=== PATIENT | female | born 1965 | race Caucasian/White ===

== ENCOUNTER 2020-01-08 11:43 | Outpatient (REF) | payer OTHER, SELFPAY | END 2020-01-08 11:44 | disposition home or self-care (01) | LOC: HO.XRAY 11:43 | PROVIDERS: PCP Internal Medicine; Visit Provider Internal Medicine | DX: Z13.89 Encounter for screening for other disorder (principal) ==

== ENCOUNTER 2021-02-07 09:53 | Outpatient (REF) | payer OTHER, SELFPAY ==
--- NOTE | ~2021-02-07 | XR_ITS ---
EXAMINATION: XR CHEST 2 VIEWS CLINICAL INFORMATION: Shortness of breath. COMPARISON: Chest radiographs dated 01/05/2017. TECHNIQUE: Frontal and lateral views of the chest were obtained. FINDINGS: The heart, great vessels, pulmonary vasculature and mediastinum are normal. The lungs show no focal infiltrate, effusion or pneumothorax. There is stable mild elevation of the right hemidiaphragm. There is no acute osseous abnormality. There are right upper quadrant surgical clips. XR/XR chest 2V IMPRESSION: No active cardiopulmonary disease.
[2021-02-07 11:36] LABS: MANUAL DIFF FLAG NO
[2021-02-07 11:42] LABS: Basophils Percent Auto 0.5 % (0-2); Eosinophils Absolute Auto 0.1 X10*3/uL (0.0-0.4); Eosinophils Percent Auto 2.6 % (0-4); Hematocrit 40.5 % (37.0-47.0); Hemoglobin 13.2 g/dl (12.0-16.0); Imm Gran Abs Auto 0.01 X10*3/uL (0.00-0.03); Imm Gran Pct Auto 0.3 % (0.0-0.4); Lymphocytes Absolute Auto 1.3 X10*3/uL (1.2-4.9); Lymphocytes Percent Auto 33.9 % (20-40); Mean Corpuscular HGB Conc 32.6 g/dl (31.0-35.0); Mean Corpuscular Hemoglobin 31.4 pg (27.0-33.0); Mean Corpuscular Volume 96.2 fL (80.0-98.0); Mean Platelet Volume 8.9 fL (9.4-12.3); Monocytes Absolute Auto 0.3 X10*3/uL (0.1-1.2); Neutrophils Absolute Auto 2.1 x10*3/uL (2.0-8.3); Neutrophils Percent Auto 54.7 % (45-73); Platelet Count 183 X10*3/uL (160-400); Red Blood Count 4.21 X10*6/uL (4.20-5.50); Red Cell Distribution Width 11.9 % (11.0-16.0); White Blood Count 3.9 X10*3/uL (4.8-10.8)
[2021-02-07 12:09] LABS: Alanine Aminotransferase 17 U/L (0-31); Albumin Level 4.1 g/dL (3.5-5.0); Alkaline Phosphatase 81 U/L (39-117); Anion Gap 11 (12-20); Aspartate Amino Transferase 19 U/L (5-31); Bilirubin Total 0.5 mg/dL (0.0-1.0); Blood Urea Nitrogen 15 mg/dL (9-16); Calcium 9.2 mg/dL (8.4-10.2); Carbon Dioxide 28 mmol/L (22-29); Chloride 105 mmol/L (96-108); Cholesterol 196 mg/dL; Estimated Glomerular Filt Rate > 60; Glucose Random 102 mg/dL (60-115); HDL Cholesterol 43 mg/dL; LDL Cholesterol Calculated 122 mg/dl; Sodium 140 mmol/L (135-145); Total Protein 6.7 g/dL (6.5-8.0); Triglycerides 155 mg/dL
[2021-02-07 12:24] LABS: Free T4 (Free Thyroxine) 0.97 ng/dL (0.71-1.85); Thyroid Stimulating Hormone 1.07 uIU/mL (0.32-4.0); Vitamin D 25-OH Total 24.9 ng/mL (>30)
[2021-02-07 12:31] LABS: Erythrocyte Sedimentation Rate 7 MM/HR (0-20)
[2021-02-07 12:46] LABS: Folate 18.4 ng/mL (> or = 4.0); Vitamin B12 594 pg/mL (200-900)
== END 2021-02-07 09:54 | disposition home or self-care (01) ==
LOC: HO.HMGCX 09:53
PROVIDERS: PCP Internal Medicine; Visit Provider Internal Medicine
DX: R06.02 Shortness of breath (principal); E78.00 Pure hypercholesterolemia, unspecified
CPT/HCPCS: 36415; 71046; 80053; 80061; 82306; 82607; 82746; 84439; 84443; 85025; 85652

== ENCOUNTER 2022-01-23 09:15 | Outpatient (REF) | payer OTHER, SELFPAY ==
[2022-01-23 09:25] LABS: MANUAL DIFF FLAG NO
[2022-01-23 09:50] LABS: Basophils Percent Auto 0.2 % (0-2); Eosinophils Absolute Auto 0.1 X10*3/uL (0.0-0.4); Eosinophils Percent Auto 2.1 % (0-4); Hematocrit 41.4 % (37.0-47.0); Hemoglobin 13.5 g/dl (12.0-16.0); Imm Gran Abs Auto 0.01 X10*3/uL (0.00-0.03); Imm Gran Pct Auto 0.2 % (0.0-0.4); Lymphocytes Absolute Auto 1.5 X10*3/uL (1.2-4.9); Lymphocytes Percent Auto 30.6 % (20-40); Mean Corpuscular HGB Conc 32.6 g/dl (31.0-35.0); Mean Corpuscular Hemoglobin 31.2 pg (27.0-33.0); Mean Corpuscular Volume 95.6 fL (80.0-98.0); Mean Platelet Volume 8.9 fL (9.4-12.3); Monocytes Absolute Auto 0.4 X10*3/uL (0.1-1.2); Monocytes Percent Auto 7.7 % (2-11); Neutrophils Absolute Auto 2.9 x10*3/uL (2.0-8.3); Neutrophils Percent Auto 59.2 % (45-73); Platelet Count 190 X10*3/uL (160-400); Red Blood Count 4.33 X10*6/uL (4.20-5.50); Red Cell Distribution Width 11.7 % (11.0-16.0); White Blood Count 4.8 X10*3/uL (4.8-10.8)
[2022-01-23 10:18] LABS: Estimated Average Glucose 117 mg/dL; Hemoglobin A1c % 5.7 %
[2022-01-23 10:34] LABS: Erythrocyte Sedimentation Rate 9 MM/HR (0-20)
[2022-01-23 10:45] LABS: Alanine Aminotransferase 16 U/L (0-31); Albumin Level 4.3 g/dL (3.5-5.0); Alkaline Phosphatase 85 U/L (39-117); Anion Gap 16 (12-20); Aspartate Amino Transferase 20 U/L (5-31); Bilirubin Total 0.3 mg/dL (0.0-1.0); Blood Urea Nitrogen 16 mg/dL (9-16); C Reactive Protein 0.39 mg/dL (< or = 0.50); Calcium 9.2 mg/dL (8.4-10.2); Carbon Dioxide 26 mmol/L (22-29); Chloride 106 mmol/L (96-108); Cholesterol 220 mg/dL; Estimated Glomerular Filt Rate > 60; Glucose Random 102 mg/dL (60-115); HDL Cholesterol 49 mg/dL; LDL Cholesterol Calculated 145 mg/dl; Potassium 4.5 mmol/L (3.3-5.1); Sodium 143 mmol/L (135-145); Triglycerides 132 mg/dL
[2022-01-23 10:59] LABS: Appearance Urine Clear; Color Urine Yellow; Glucose Urine UA Negative (Negative); Leukocyte Esterase Urine Trace (Negative); Nitrite Urine Negative (Negative); PH 5.5 (5.0-9.0); UMIC TRIGGER UA YES; Urine Blood Negative (Negative); Urine Ketones Negative (Negative); Urine Protein Negative (Neg-Trace)
[2022-01-23 11:02] LABS: Bacteria Urine None Seen (None Seen); Hyaline Casts Urine 0-2 /LPF (0-2); Squamous Epithelial Cell Urine 0-2 /HPF (0-2)
[2022-01-23 11:07] LABS: Free T4 (Free Thyroxine) 1.13 ng/dL (0.71-1.85); Thyroid Stimulating Hormone 0.98 uIU/mL (0.32-4.0)
[2022-01-23 11:55] LABS: Vitamin D 25-OH Total 35.4 ng/mL (>30)
[2022-01-23 12:30] LABS: Folate 13.6 ng/mL (> or = 4.0)
[2022-01-23 12:31] LABS: Vitamin B12 617 pg/mL (200-900)
== END 2022-01-23 09:16 | disposition home or self-care (01) ==
LOC: HO.LAB 09:15
PROVIDERS: PCP Internal Medicine; Visit Provider Internal Medicine
DX: R73.02 Impaired glucose tolerance (oral) (principal); K21.9 Gastro-esophageal reflux disease without esophagitis; E78.00 Pure hypercholesterolemia, unspecified; M17.9 Osteoarthritis of knee, unspecified
CPT/HCPCS: 36415; 80053; 80061; 81001; 82306; 82607; 82746; 83036; 84439; 84443; 85025; 85652; 86140

== ENCOUNTER 2022-02-15 15:54 | Outpatient (REF) | payer OTHER, SELFPAY | END 2022-02-15 15:55 | disposition home or self-care (01) | LOC: HO.RESP 15:54 | PROVIDERS: PCP Internal Medicine; Visit Provider Internal Medicine | DX: Z13.89 Encounter for screening for other disorder (principal) ==

== ENCOUNTER 2022-04-29 08:54 | Outpatient (REF) | payer OTHER, SELFPAY ==
--- NOTE | ~2022-04-29 | XR_ITS ---
EXAMINATION: XR CHEST CLINICAL INFORMATION: Impaired glucose tolerance COMPARISON: Previous chest x-ray most recent February 2021 TECHNIQUE: 2 views of the chest were obtained. FINDINGS: No significant abnormality is noted involving the heart, lungs, mediastinum, bony thorax or soft tissues. XR/XR chest 2V IMPRESSION: Unremarkable examination.
== END 2022-04-29 08:55 | disposition home or self-care (01) ==
LOC: HO.XRAY 08:54
PROVIDERS: PCP Internal Medicine; Visit Provider Internal Medicine
DX: R13.10 Dysphagia, unspecified (principal); R73.02 Impaired glucose tolerance (oral)
CPT/HCPCS: 71046

== ENCOUNTER 2023-11-15 16:15 | Outpatient (AMB) | payer OTHER, SELFPAY ==
[2023-11-15 16:19] VITALS: BP 116/72; PULSE 77; O2SAT 98; BMI 26.8
--- NOTE | 2023-11-15 16:19 | MHC.PC.OV ---
Vital Signs 11/15/23 16:19 Height 5 ft 4 in Weight 156 lb BMI 26.8 BP 116/72 Blood Pressure Location Lt brachial Position Sitting Pulse 77 Pulse Source Pulse Oximeter Pulse Oximetry (%) 98 Oxygen Delivery Method Room Air Intake Visit Reasons: annual pe Construction Site Crossing Guard Required: No Allergies acetaminophen [From Midrin] Allergy (Mild, Verified 11/15/23 16:20) unknown dichloralphenazone [From Midrin] Allergy (Mild, Verified 11/15/23 16:20) unknown isometheptene [From Midrin] Allergy (Mild, Verified 11/15/23 16:20) unknown ceftriaxone [From Rocephin] Allergy (Unknown, Verified 11/15/23 16:20) Unknown ciprofloxacin [Cipro] Allergy (Unknown, Verified 11/15/23 16:20) Unknown metronidazole [Flagyl] Allergy (Unknown, Verified 11/15/23 16:20) Unknown Sulfa (Sulfonamide Antibiotics) Allergy (Unknown, Verified 11/15/23 16:20) Unknown timolol Allergy (Intermediate, Uncoded 11/15/23 16:58) vision changes Medication List - Last Reconciled 11/15/23 by Alan Bedolla MD azelastine 2 sprays intranasal BID dicyclomine 10 mg PO TID fluticasone propionate 50 mcg/actuation 1 spray intranasal DAILY lactobacillus combination no.8 (Adult Probiotic) 3,000 mmu cells PO DAILY methylcellulose (laxative) (Fiber Laxative (methylcellulose)) 500 mg PO DAILY multivitamin 1 tab PO DAILY nabumetone 500 mg PO BID pantoprazole 40 mg PO DAILY Tobacco use date assessed: 11/15/23 Dental Screening Dental Screen Date: 11/15/23 Did you have a dental visit in the last 12 months?: Yes Did you have a dental problem in the last 6 months where you did not have access to dental care?: No Was dental information given to patient?: Patient has dentist HPI annual pe HPI Details 58-year-old female with GERD impaired glucose tolerance coming in for physical exam last seen in 2021. Mammogram is due colonoscopy is up-to-date patient [facility] patient does have cervical disc degeneration having injections from [facility] pain management. Osteoarthritis shoulder pain having had injections done tendonitis having injections done also. Patient had bilateral thumb pain. Workup advised. Patient also has seen ENT had a CT scan of the sinuses in 2020 showing clear sinuses and nasal passageway. Does have nasal septal deviation to the right. Received note also from Gastroenterology having had colonoscopy having diverticulosis with 2 tubular adenomas advised 7 year recall this was done in May 04 2022. 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 Surgical History (Updated 11/15/23 @ 17:01 by Alan Bedolla MD) H/O pelvic surgery History of endometrial ablation H/O bilateral breast reduction surgery History of cholecystectomy History of tubal ligation Family History (Updated 01/08/21 @ 16:50 by Alan Bedolla MD) Father Basal cell carcinoma COPD (chronic obstructive pulmonary disease) Mother Dementia Paternal Grandmother Stroke Social History (Updated 12/04/20 @ 17:08 by Elsa Alegria MD) Housing: House Alcohol intake: never Patient Tobacco Use Status: Never used Tobacco e-Cigarette/Vaping Use: Never Used Second Hand Smoke Exposure: No service: No Current occupational status: employed Current occupational exposures/hazards: No Cognitive needs: No Hearing needs: No Vision needs: Yes Questionnaire PHQ-9 Over the last 2 weeks, how often have you been bothered by any of the following problems? 1. Little interest or pleasure in doing things: not at all 2. Feeling down, depressed, or hopeless: several days 3. Trouble falling or staying asleep, or sleeping too much: several days 4. Feeling tired or having little energy: several days 5. Poor appetite or overeating: not at all 6. Feeling bad about yourself - or that you are a failure or have let yourself or your family down: not at all 7. Trouble concentrating on things, such as reading the newspaper or watching television: several days 8. Moving or speaking so slowly that other people could have noticed. Or the opposite - being so fidgety or restless that you have been moving around a lot more than usual: not at all 9. Thoughts that you would be better off or of hurting yourself in some way: not at all Total score: 4 Depression Screening Interpretation: Negative Depression Screening Done: Yes 01727 - PHQ-9 Billing: Yes Source: Developed by Drs. Esteban Rivers, Ellen Valenzuela, Duncan Porras and colleagues, with an educational chela from [employer] Thrive Questionnaire Date Thrive assessed: 11/15/23 I am a: Patient What is your living situation today?: I have a steady place to live Within the past 12 months, did the food you bought not last and you didn't have the money to get more?: Never true Within the past 12 months, did you worry whether your food would run out before you got money to buy more?: Never true Do you have trouble paying for medicines?: No Do you have trouble getting transportation to medical appointments?: No Do you have trouble paying your heating and electricity bill?: No Do you have trouble taking care of your child, family member or friend?: No Do you have trouble with day-to-day activities such as bathing, preparing meals, shopping, managing finances, etc.?: No Are you currently unemployed and looking for a job?: No Are you interested in more education?: No Please select the resources that you would like help with: None Currently or been in a relationship where the following occur: No concerns reported THRIVE Score: 0 AUDIT C Alcohol Use Questionnaire (AUDIT-C) 1. How often do you have a drink containing alcohol?: Never 2. How many drinks containing alcohol do you have on a typical day when you are drinking?: 1 or 2 3. How often do you have six or more drinks on one occasion?: Never Total Score: 0 TAWANNA-7 AMB Questionnaire TAWANNA-7 Date TAWANNA - 7 assessed: 11/15/23 Feeling nervous, anxious, or on edge: 0 = Not at all Not being able to stop or control worryin = More than half the days Worrying too much about different things: 1 = Several days Trouble relaxin = Several days Being so restless that it is hard to sit still: 1 = Several days Becoming easily annoyed or irritable: 0 = Not at all Feeling afraid as if something awful might happen: 0 = Not at all Total TAWANNA-7 score (0-4 normal; 5-9 mild; 10-14 moderate; 15-21 severe): 5 Source: Developed by Drs. Esteban Rivers, Ellen Valenzuela, Duncan Porras and colleagues, with an educational chela from [employer] Review of Systems Const Denies poor appetite and Denies weakness Eyes Denies no additional complaints ENT Reports Normal hearing present, Denies dizziness, Denies nasal congestion, Denies tinnitus and Denies sore throat Card Denies chest pain, Denies syncope, Denies rapid heart rate and Denies dyspnea Resp Denies cough and Denies dyspnea GI Denies change in stool character, Reports constipation, Denies diarrhea, Denies nausea and Denies vomiting Denies urinary frequency, Denies difficulty voiding and Denies dysuria Neuro Reports Normal hearing present, Denies confusion, Denies dizziness, Denies syncope and Denies weakness Psych Denies confusion Physical exam (Primary Care) Vital Signs: Last Vital Signs Pulse 77 11/15/23 16:19 BP 116/72 11/15/23 16:19 Pulse Ox 98 11/15/23 16:19 Oxygen Delivery Method Room Air 11/15/23 16:19 BMI result Body Mass Index 26.8 Tobacco/Smoking Status: Tobacco use Status Tobacco use date assessed 11/15/23 11/15/23 16:28 Patient Tobacco Use Status Never used Tobacco 11/15/23 16:28 e-Cigarette/Vaping Use Never Used 11/15/23 16:28 PHQ-9: PHQ-9 Score PHQ-9: Total score 4 11/15/23 16:28 Depression Screening Interpretation: Negative Thrive Assessment: Date of Thrive Assessment Date Thrive assessed 11/15/23 11/15/23 16:28 Currently or been in a relationship where the following occur: No concerns reported Const General: alert and awake; No confusion Orientation/consciousness: No confusion HENMT Head: Yes normocephalic Ears: external ears normal and TM's normal bilaterally Face and sinus: Yes normal facial exam Mouth: moist mucous membranes Throat: Yes tonsils normal Eyes Conjunctivae: conjunctivae normal Pupils: Equal, round and reactive pupils present and Pupil accommodation reflex normal Direct Ophthalmoscopy: normal light reflex Neck Neck: No lymphadenopathy Thyroid: Thyroid normal Chest Chest palpation & inspection: normal inspection of the chest Resp Effort & Inspection: normal respiratory effort and no audible wheezes Auscultation: clear to auscultation bilaterally, no crackles, no wheezes and lung sounds not diminished Cardio Rate: regular rate Rhythm: regular rhythm Peripheral pulses: radial pulses present and dorsalis pedis present GI Palpation (GI): no masses Auscultation: normal bowel sounds and normoactive bowel sounds Rectal Exam - Female: deferred Skin General skin exam: no rashes or lesions noted Rashes: no rashes Neuro General: deep tendon reflexes 2+ bilaterally and No confusion Cranial nerves: Yes Equal, round and reactive pupils present, Yes Midline tongue present, Yes Normal hearing present and Yes Ability to bilaterally elevate shoulders present Cognition (Neuro): normal cognition Gait exam (Neuro): Normal gait present Motor exam (neuro): 5/5 motor strength present throughout Deep tendon reflexes (DTR's): Right brachioradialis reflex intensity grade: 2+, Left brachioradialis reflex intensity grade: 2+, Right patellar reflex intensity grade: 2+ and Left patellar reflex intensity grade: 2+ Extrem General: No edema Assessment and Plan Assessment & Plan (1) Annual physical exam: Code(s): Z00.00 - Encounter for general adult medical examination without abnormal findings Plan: Patient is advised to eat healthy, keep well hydrated, keep active and have adequate sleep. (2) GERD (gastroesophageal reflux disease): Code(s): K21.9 - Gastro-esophageal reflux disease without esophagitis Qualifiers: Esophagitis presence: without esophagitis Qualified Code(s): K21.9 - Gastro-esophageal reflux disease without esophagitis Plan: Avoid the foods that causes that usually spicy foods, tomato products, juices, coffee, soda and foods that your sensitive to. After eating do not lie down, allow 3-4 hours before in lie down. And keep the head of bed above 30 degrees to avoid the acid from going up. (3) Impaired glucose tolerance: Code(s): R73.02 - Impaired glucose tolerance (oral) Plan: Decrease the amount of carbohydrate intake, pasta, bread, rice and potatoes are all sugar and that is aside from all the sweet stuff, remember that fruits are good but they are Sweet also. (4) Knee osteoarthritis: Code(s): M17.9 - Osteoarthritis of knee, unspecified Plan: Presently on nabumetone take with food all the time. (5) Situational depression: Code(s): F43.21 - Adjustment disorder with depressed mood Plan: decline med. will be seeing counselling Orders: Orders Comprehensive Met. Panel Today R73.02 - Impaired glucose tolerance (oral) Complete Blood Count Auto Diff Today R73.02 - Impaired glucose tolerance (oral) Thyroid Stimulating Hormone Today R73.02 - Impaired glucose tolerance (oral) Vitamin D 25-OH Total Today R73.02 - Impaired glucose tolerance (oral) Free T4 (Free Thyroxine) Today R73.02 - Impaired glucose tolerance (oral) Hemoglobin A1c Today R73.02 - Impaired glucose tolerance (oral) Lipid Panel Today E78.00 - Pure hypercholesterolemia, unspecified, R73.02 - Impaired glucose tolerance (oral) Vitamin B12 and Folate Today R73.02 - Impaired glucose tolerance (oral) Medications: New pantoprazole Dr. Juarez 40 mg PO BID R73.02 - Impaired glucose tolerance (oral) Coding Level of Care Code Est Pt Prev Care 40-64y(02787) Diagnoses Annual physical exam Z00.00 Gastroesophageal reflux disease without esophagitis K21.9 Esophagitis presence: without esophagitis Impaired glucose tolerance R73.02 Knee osteoarthritis M17.9 Situational depression F43.21
== END 2023-11-15 17:18 | disposition home or self-care (01) ==
PROVIDERS: PCP Internal Medicine; Visit Provider Internal Medicine
DX: Z00.00 Encounter for general adult medical examination without abnormal findings (principal); K21.9 Gastro-esophageal reflux disease without esophagitis; R73.02 Impaired glucose tolerance (oral); M17.9 Osteoarthritis of knee, unspecified; F43.21 Adjustment disorder with depressed mood
CPT/HCPCS: 99396

== ENCOUNTER 2024-04-11 08:12 | Outpatient (REF) | payer OTHER, SELFPAY ==
--- OUTSIDE RECORDS SUMMARY | 2024-04-11 08:15 | XMS_ITS | Clinical Summary ---
Author Organization [facility] Address [address] [place] [address] Care Team Providers Care Range Aid Name Role Phone Unavailable Primary Care Provider Unavailabl e Medications Medication Sig Dispensed Refills Start Date End Date Status dicyclomine (BENTYL) 10 mg capsuleIndications:I rritable bowel syndrome (IBS) TAKE 1 CAPSULE BY MOUTH THREE TIMES A DAY NEEDED 90 capsule 2 02/13/2024 Active Social History Tobacco Use Types Packs/Day Years Used Date Smoking Tobacco: Never Assessed Sex and Gender Information Value Date Recorded Sex Assigned at Not on file Gender Identity Not on file Sexual Orientation Not on file Plan of Treatment Health Maintenance Due Date Last Done Comments Breast Cancer Screening 1965 DTaP,Tdap,and Td Vaccines (1 - Tdap) 1984 Hepatitis B Vaccines (1 of 3 - 19+ 3-dose series) 1984 Cervical Cancer Screening: P ap Smear 1986 Zoster Vaccines (1 of 2) 09/02/2015 Colorectal Cancer Screening: Colonoscopy 09/27/2023 Depression Screening 09/27/2023 HIV Screening 09/27/2023 Hepatitis C Screening 09/27/2023 Social Influencers of Health Screening 09/27/2023 COVID-19 Vaccine ( - 2023-2 5 season) 2023 Influenza Vaccine (#1) 2023 HIB Vaccines Aged Out No longer eligi ble based on patient's age to complete this topic HPV Vaccines Aged Out No longer eligi ble based on patient's age to complete this topic Hepatitis A Vaccines Aged Out No long er eligible based on patient's age to complete this topic IPV Vaccines Aged Out No longer eligi ble based on patient's age to complete this topic MMR Vaccines Aged Out No longer eligi ble based on patient's age to complete this topic Meningococcal ACWY Vaccine Aged Out N o longer eligible based on patient's age to complete this topic Pneumococcal Vaccine: Pediat rics (0 to 5 Years) and At-Risk Patients (6 to 64 Years) Aged Out No longer eligible b ased on patient's age to complete this topic RSV Immunization Patients Un alycia 20 months Aged Out No longer eligible b ased on patient's age to complete this topic Varicella Vaccines Aged Out No longer eligible based on patient's age to complete this topic
--- OUTSIDE RECORDS SUMMARY | 2024-04-11 08:15 | XMS_ITS | Clinical Summary ---
Author Organization [facility] Address [address] [place] [address] Care Team Providers Care Graphic Designer Name Role Phone Pcp, No Primary Care Provider [phone] Social History Tobacco Use Types Packs/Day Years Used Date Smoking Tobacco: Never Assessed Comments Unknown Sex and Gender Information Value Date Recorded Sex Assigned at Not on file Legal Sex Female 1:18 PM EDT Gender Identity Not on file Sexual Orientation Not on file Last Filed Vital Signs Vital Sign Reading Time Taken Comments Blood Pressure - - Pulse 66 11/13/2020 3:00 PM EDT Temperature 36.3 ??C (97.4 ??F) 11/13/2020 3:00 PM ED T Respiratory Rate - - Oxygen Saturation 97% 11/13/2020 3:00 PM EDT Inhaled Oxygen Concentration - - Weight - - Height - - Body Mass Index - - Plan of Treatment Health Maintenance Due Date Last Done Comments Colorectal Cancer: COLONOSCO PY Screening every 10 yrs (or Modifier) 1965 Depression: Screening Annual ly using PHQ-2/9 in Adults 18 yrs or above (or HM Modifier)([facility]) 09/02/1983 Hepatitis C Virus Infection in Adolescents and Adults: Screening (or Modifier) ([facility]) 09/02/[address] [facility] Screening Reminder: Paulina enriquez for all adults ([facility]) 09/02/1983 Tobacco Smoking Cessation: i n Adults excluding Women: Behavioral and Pharmacotherapy Interventions ([facility]) 09/02/1983 DTaP/Tdap/Td Vaccines ([facility]) (1 - Tdap) 1984 Cervical Cancer Screenin 1-65 yrs of age (or Modifier) 1986 Cervical Cancer Screening: P ap every 3 yrs pts age 21-65 1986 Cervical Cancer: Pap Screeni ng with Modifier timing ([facility]) 1986 Cervical Cancer: hrHPV alone or with cotesting Pap for Pts 30-65yrs screening every 5yrs ([facility]) 1986 Colorectal Cancer Screening 45 -75 Yrs (or HM Modifier) 2010 Colorectal Cancer: FLEXIBLE SIGMOIDOSCOPY Screening every 5 yrs 2010 Colorectal Cancer: Fecal Immunochemical Test (FIT) Annually [facility] 2010 Colorectal Cancer: High-sens itivity gFOBT Screening Annually [facility] 2010 Colorectal Cancer: Stool Col oguard Screening every 3 yrs 2010 Colorectal Cancer:CT Colonog tiffanie Screening every 5 yrs 2010 Lipid Screening: Every 5 yrs for Women aged 45+ (or HM Modifier) ([facility]) 09/02/2011 Breast Cancer: Screening Paulina ually age 50-74 yrs (or HM Modifier)([facility]) 09/02/2015 Zoster/Shingles Vaccine Seri es Screening: Adults aged 18+ yrs (or HM Modifiers)([facility]) (1 of 2) 09/02/2015 Flu Vaccination: Yearly for ages 18mos through 64 years (or Modifier)([facility]) 10/06/2023 COVID-19 Vaccine Screening: Initial Series and Booster Status ([facility]) (2023- season) 2023 Pneumococcal Vaccination Scr eening: Pts 0-19 & 19-64 yrs of age ([facility]) Aged Out No longer eligible based on patient's age to complete this topic Medical Devices Not on file Insurance [facility] Care Teams Graphic Designer Relationship Specialty Start Date End Date Pcp, Jasmyn PCP - General Family Medicine 05/28/20
[2024-04-11 09:51] LABS: MANUAL DIFF FLAG NO
[2024-04-11 10:00] LABS: Basophils Percent Auto 0.4 % (0-2); Eosinophils Absolute Auto 0.1 X10*3/uL (0.0-0.4); Eosinophils Percent Auto 2.1 % (0-4); Hemoglobin 13.7 g/dl (12.0-16.0); Imm Gran Abs Auto 0.01 X10*3/uL (0.00-0.03); Imm Gran Pct Auto 0.2 % (0.0-0.4); Lymphocytes Absolute Auto 1.6 X10*3/uL (1.2-4.9); Lymphocytes Percent Auto 32.6 % (20-40); Mean Corpuscular HGB Conc 33.4 g/dl (31.0-35.0); Mean Corpuscular Hemoglobin 31.9 pg (27.0-33.0); Mean Corpuscular Volume 95.6 fL (80.0-98.0); Mean Platelet Volume 8.6 fL (9.4-12.3); Monocytes Absolute Auto 0.4 X10*3/uL (0.1-1.2); Monocytes Percent Auto 9.1 % (2-11); Neutrophils Absolute Auto 2.7 x10*3/uL (2.0-8.3); Neutrophils Percent Auto 55.6 % (45-73); Platelet Count 186 X10*3/uL (160-400); Red Blood Count 4.29 X10*6/uL (4.20-5.50); Red Cell Distribution Width 12.3 % (11.0-16.0); White Blood Count 4.8 X10*3/uL (4.8-10.8)
[2024-04-11 10:18] LABS: Estimated Average Glucose 123 mg/dL; Hemoglobin A1C 145.4023 umol/L; Hemoglobin A1c % 5.9 % (<6.0); Total Hemoglobin (HGBA1C) 3579.4677 umol/L
[2024-04-11 10:27] LABS: Alanine Aminotransferase 28 U/L (0-31); Albumin Level 4.4 g/dL (3.5-5.0); Alkaline Phosphatase 77 U/L (39-117); Anion Gap 11 (12-20); Aspartate Amino Transferase 27 U/L (5-31); Bilirubin Total 0.3 mg/dL (0.0-1.0); Blood Urea Nitrogen 13 mg/dL (9-16); Carbon Dioxide 28 mmol/L (22-29); Chloride 107 mmol/L (96-108); Cholesterol 191 mg/dL (<200); Estimated Glomerular Filt Rate > 60; Glucose Random 106 mg/dL (60-115); HDL Cholesterol 48 mg/dL (>40); LDL Cholesterol Calculated 112 mg/dL (<100); Sodium 142 mmol/L (135-145); Total Protein 7.7 g/dL (6.5-8.0); Triglycerides 159 mg/dL (<150)
[2024-04-11 10:45] LABS: Free T4 (Free Thyroxine) 1.09 ng/dL (0.71-1.85); Thyroid Stimulating Hormone 1.64 uIU/mL (0.32-4.0); Vitamin D 25-OH Total 42.1 ng/mL (>30)
[2024-04-11 10:46] LABS: Folate 14.3 ng/mL (> or = 4.0); Vitamin B12 612 pg/mL (200-900)
== END 2024-04-11 08:13 | disposition home or self-care (01) ==
LOC: HO.HMGCLDS 08:12
PROVIDERS: PCP Internal Medicine; Visit Provider Internal Medicine
DX: R73.02 Impaired glucose tolerance (oral) (principal); E78.00 Pure hypercholesterolemia, unspecified
CPT/HCPCS: 36415; 80053; 80061; 82306; 82607; 82746; 83036; 84439; 84443; 85025

== ENCOUNTER 2024-04-18 13:11 | Outpatient (AMB) | payer OTHER, SELFPAY ==
[2024-04-18 13:31] VITALS: BP 118/68; PULSE 71; O2SAT 92; BMI 27.8
--- NOTE | 2024-04-18 13:31 | MHC.PC.OV ---
Vital Signs 04/18/24 13:31 Height 5 ft 4 in Weight 162 lb BMI 27.8 BP 118/68 Blood Pressure Location Lt brachial Position Sitting Pulse 71 Pulse Source Pulse Oximeter Pulse Oximetry (%) 92 Oxygen Delivery Method Room Air Intake Visit Reasons: FU Allergies acetaminophen [From Midrin] Allergy (Mild, Verified 04/18/24 13:31) unknown dichloralphenazone [From Midrin] Allergy (Mild, Verified 04/18/24 13:31) unknown isometheptene [From Midrin] Allergy (Mild, Verified 04/18/24 13:31) unknown ceftriaxone [From Rocephin] Allergy (Unknown, Verified 04/18/24 13:31) Unknown ciprofloxacin [Cipro] Allergy (Unknown, Verified 04/18/24 13:31) Unknown metronidazole [Flagyl] Allergy (Unknown, Verified 04/18/24 13:31) Unknown Sulfa (Sulfonamide Antibiotics) Allergy (Unknown, Verified 04/18/24 13:31) Unknown timolol Allergy (Intermediate, Uncoded 04/18/24 13:31) vision changes Tobacco use date assessed: 04/18/24 Dental Screening Dental Screen Date: 04/18/24 Did you have a dental visit in the last 12 months?: Yes Did you have a dental problem in the last 6 months where you did not have access to dental care?: No Was dental information given to patient?: Patient has dentist HPI FU HPI Details - The patient is a 58-year-old female presenting for a follow-up appointment regarding her multiple chronic conditions and recent diagnostic results. She has a known history of Von Willebrand Disease, Irritable Bowel Syndrome (IBS), and Gastroesophageal Reflux Disease (GERD). Previously, she reported that her osteoarthritis affects primarily her hands, and she experiences cervical and lumbar disc degeneration. Her pain management regimen includes diclofenac. Her laboratory results, conducted in March and April 2022, revealed normal liver and kidney function, a normal blood count, and normal platelet levels. However, her blood glucose levels were mildly elevated with a Hemoglobin A1c of 5.9, indicating an increase from a previous reading of 5.7. Her lipid profile showed triglycerides slightly elevated at 159 mg/dL, and LDL cholesterol at 112 mg/dL. Upon the last review with rheumatology, testing for autoimmune markers, including Sj?gren's syndrome and other related conditions, was negative, leaving arthritis as the primary concern. There is no evidence of anemia or other significant blood disorders. The patient denies any significant symptoms apart from the mild elevation in glucose levels, potentially linked to dietary habits, which she is encouraged to monitor closely. Had a very long discussion with the patient regarding her depression and anxiety patient lost son and is taking care of her mother with dementia and grand children. Has been relating her situation causing her anxiety and depression. [facility] Medical History (Updated 04/18/24 @ 14:08 by Alan Bedolla MD) Closed arm fracture Chronic sinusitis Fecal incontinence Impaired glucose tolerance GERD (gastroesophageal reflux disease) Open-angle glaucoma Right wrist fracture Right carpal tunnel syndrome Diverticulitis Osteoarthritis Glaucoma Irritable bowel syndrome Impaired ability of von Willebrand factor (vWF) to agglutinate platelets Surgical History (Updated 11/15/23 @ 17:01 by Alan Bedolla MD) H/O pelvic surgery History of endometrial ablation H/O bilateral breast reduction surgery History of cholecystectomy History of tubal ligation Family History (Updated 01/08/21 @ 16:50 by Alan Bedolla MD) Father Basal cell carcinoma COPD (chronic obstructive pulmonary disease) Mother Dementia Paternal Grandmother Stroke Social History (Updated 12/04/20 @ 17:08 by Elsa Alegria MD) Housing: House Alcohol intake: never Patient Tobacco Use Status: Never used Tobacco Tobacco use type: Cigarette e-Cigarette/Vaping Use: Never Used Second Hand Smoke Exposure: No service: No Current occupational status: employed Current occupational exposures/hazards: No Cognitive needs: No Hearing needs: No Vision needs: Yes Questionnaire Thrive Questionnaire Date Thrive assessed: 04/18/24 AUDIT C Alcohol Use Questionnaire (AUDIT-C) 1. How often do you have a drink containing alcohol?: Never 2. How many drinks containing alcohol do you have on a typical day when you are drinking?: 1 or 2 3. How often do you have six or more drinks on one occasion?: Never Total Score: 0 TAWANNA-7 AMB Questionnaire TAWANNA-7 Date TAWANNA - 7 assessed: 04/18/24 Feeling nervous, anxious, or on edge: 0 = Not at all Not being able to stop or control worryin = More than half the days Worrying too much about different things: 1 = Several days Trouble relaxin = Several days Being so restless that it is hard to sit still: 1 = Several days Becoming easily annoyed or irritable: 0 = Not at all Feeling afraid as if something awful might happen: 0 = Not at all Total TAWANNA-7 score (0-4 normal; 5-9 mild; 10-14 moderate; 15-21 severe): 5 Source: Developed by Drs. Esteban Rivers, Ellen Valenzuela, Duncan Porras and colleagues, with an educational chela from [employer]. Physical exam (Primary Care) Vital Signs: Last Vital Signs Pulse 71 04/18/24 13:31 BP 118/68 04/18/24 13:31 Pulse Ox 92 04/18/24 13:31 Oxygen Delivery Method Room Air 04/18/24 13:31 BMI result Body Mass Index 27.8 Tobacco/Smoking Status: Tobacco use Status Tobacco use date assessed 04/18/24 04/18/24 13:33 Patient Tobacco Use Status Never used Tobacco 04/18/24 13:33 Tobacco use type Cigarette 04/18/24 13:33 e-Cigarette/Vaping Use Never Used 04/18/24 13:33 Thrive Assessment: Date of Thrive Assessment Date Thrive assessed 04/18/24 04/18/24 13:33 Const General: alert; No acute distress Eyes Conjunctivae: conjunctivae normal Resp Auscultation: clear to auscultation bilaterally Cardio Rate: regular rate Rhythm: regular rhythm GI Inspection: Yes normal to inspection Extrem General: Yes normal to inspection and No edema Coding Level of Care Code Est Pt Level 4 (35926) Diagnoses Overweight (BMI 25.0-29.9) E66.3 Impaired glucose tolerance R73.02 Gastroesophageal reflux disease without esophagitis K21.9 Esophagitis presence: without esophagitis Irritable bowel syndrome K58.9 Situational depression F43.21 Generalized anxiety disorder F41.1 Assessment & Plan Assessment & Plan (1) Overweight (BMI 25.0-29.9): Code(s): E66.3 - Overweight Category: Medical Plan: Diet and exercise (2) Impaired glucose tolerance: Code(s): R73.02 - Impaired glucose tolerance (oral) Category: Medical Plan: Decrease the amount of carbohydrate intake, pasta, bread, rice and potatoes are all sugar and that is aside from all the sweet stuff, remember that fruits are good but they are Sweet also. (3) GERD (gastroesophageal reflux disease): Code(s): K21.9 - Gastro-esophageal reflux disease without esophagitis Category: Medical Qualifiers: Esophagitis presence: without esophagitis Qualified Code(s): K21.9 - Gastro-esophageal reflux disease without esophagitis Plan: Avoid the foods that causes that usually spicy foods, tomato products, juices, coffee, soda and foods that your sensitive to. After eating do not lie down, allow 3-4 hours before in lie down. And keep the head of bed above 30 degrees to avoid the acid from going up. (4) Irritable bowel syndrome: Code(s): K58.9 - Irritable bowel syndrome, unspecified Category: Medical Plan: Stable with dicyclomine as needed (5) Situational depression: Code(s): F43.21 - Adjustment disorder with depressed mood Category: Medical Plan: Referral to Psychiatry done and started on trazodone to help with sleep (6) Generalized anxiety disorder: Code(s): F41.1 - Generalized anxiety disorder Category: Medical Plan: Referral to Psychiatry done Plan - Continue management and monitoring of Osteoarthritis and Degenerative Disc Disease with prescribed diclofenac for pain relief. Monitor for any side effects. - Maintain current management strategies for Von Willebrand Disease with the consideration of medication side effects. - Manage Gastroesophageal Reflux Disease with the suggested dietary changes and medication if needed. - Mild hyperglycemia: Advise dietary modifications to control blood sugar levels. Emphasize reducing intake of carbohydrates such as pasta, bread, rice, cereals, and sweets. - Monitor Hyperlipidemia: Encourage lipid-lowering dietary changes. Continue monitoring lipid levels. - Regular follow-up with rheumatology to manage arthritis. - Recommend continuous monitoring of vitamin , vitamin D, folic acid, and thyroid function to ensure they remain within normal limits. Orders: Orders XR sinus min 3V Today J32.9 - Chronic sinusitis, unspecified Referrals Psychiatry Outpatient Consultation Service F41.1 - Generalized anxiety disorder, F43.21 - Adjustment disorder with depressed mood Medications: New vit [id number] 352 300 mcg-45 mg- 10 mcg-5 mg (Alive Immune Elderberry) 1 tab PO .QD 30 tabs 0RF trazodone 50 mg PO BEDTIME PRN 30 tabs 0RF sleep G47.00 - Insomnia, unspecified Discontinued doxycycline hyclate Discontinued Reason: Doctor's Order 100 mg PO BID 14 caps 0RF
--- OUTSIDE RECORDS SUMMARY | 2024-04-18 14:32 | XMS_ITS | Clinical Summary ---
Author Organization [facility] lin Address [address] [place] [address] Care Team Providers Care Home Office Representative Name Role Phone Pcp, No Primary Care Provider [phone] Social History Tobacco Use Types Packs/Day Years [...] Adults 18 yrs or above (or HM Modifier)([facility]) 09/02/1983 Hepatitis C Virus Infection in Adolescents and Adults: Screening (or Modifier) ([facility]) 09/02/1983 SDOH Screening Reminder: Paulina leslielly for all adults ([facility]) 09/02/1983 Tobacco Smoking Cessation: i n Adults excluding Women: Behavioral and Pharmacotherapy Interventions ([facility]) 09/02/1983 DTaP/Tdap/Td Vaccines ([facility]) (1 - Tdap) 1984 Cervical Cancer Screenin 1-65 yrs of age (or Modifier) 1986 Cervical Cancer Screening: P ap every 3 yrs pts age 21-65 1986 Cervical Cancer: Pap Screeni ng with Modifier timing ([facility]) 1986 Cervical Cancer: hrHPV alone or with cotesting Pap for Pts 30-65yrs screening every 5yrs ([facility]) 1986 Colorectal Cancer Screening 45 -75 Yrs (or HM Modifier) 2010 Colorectal Cancer: FLEXIBLE SIGMOIDOSCOPY Screening every 5 yrs 2010 Colorectal Cancer: Fecal Immunochemical Test (FIT) Annually [facility] 2010 Colorectal Cancer: High-sens itivity gFOBT Screening Annually [facility] 2010 Colorectal Cancer: Stool Col oguard Screening every 3 yrs 2010 Colorectal Cancer:CT Colonog tiffanie Screening every 5 yrs 2010 Lipid Screening: Every 5 yrs for Women aged 45+ (or HM Modifier) ([facility]) 09/02/2011 Breast Cancer: Screening Paulina ually age 50-74 yrs (or HM Modifier)([facility]) 09/02/2015 Zoster/Shingles Vaccine Seri es Screening: Adults aged 18+ yrs (or HM Modifiers)([facility]) (1 of 2) 09/02/2015 Flu Vaccination: Yearly for ages 18mos through 64 years (or Modifier)([facility]) 10/06/2023 COVID-19 Vaccine Screening: Initial Series and Booster Status ([facility]) (2023- season) 2023 Pneumococcal Vaccination Scr eening: Pts 0-19 & 19-64 yrs of age ([facility]) Aged Out No longer eligible based on patient's age to complete this topic Medical Devices Not on file Insurance [facility] Care Teams Home Office Representative Relationship Specialty Start Date End Date Pcp, No PCP - General Family Medicine 05/28/20
--- OUTSIDE RECORDS SUMMARY | 2024-04-18 14:33 | XMS_ITS | Data Portability ---
Author Organization [facility] Pain Managem ent, PAIN OFFICE Address [address] [facility] [address] [place] [address] Care Team Providers Care Product Technology Scientist Name Role Phone JON BALTAZAR Primary Care Provider [phone] Assessment Encounter Date Assessment Date Assessment LastModified by Organization Details LastModified Time 05/13/2011 05/13/2011 45 year old woman with? ? ?neck pain radiating into the right? ? ?upper extremity. On exam ,she has pain on flexion and tenderness in right paracervical and trapezius muscles. MRI? ? ?cervical spine shows mild spondylosis? ? ?. EMG shows minimal right C6-7 radiculopathy. Trial of? ? ?cervical epidural steroid injections under fluroscopic guidance was recommended. The risks and benefits of the procedure? ? ? were discussed in detail. She wishes to proceed. An appointment has been booked for the same. She needs a bung driver on the day of the procedure. She was given a script for Valium preprocedure. [email or web address] Not available 05/17/2011 11:38:17 05/24/2011 05/24/2011 Alyssa Espino is a 45 year old woman with neck pain radiating into right upper extremity. She is here for a trial of cervical epidural steroid injection under fluroscopic guidance.The risks and benefits of the procedure were discussed in detail. She wishes to proceed today. [email or web address] Not available 05/26/2011 09:03:07 12/22/2016 12/22/2016 Alyssa Espino is a 51 year old woman with neck pain radiating into the right upper extremity. On exam ,she has pain on flexion and tenderness in right paracervical and trapezius muscles. MRI cervical spine shows mild spondylosis . EMG shows minimal right C6-7 radiculopathy. Trial of cervical epidural steroid injections under fluoroscopic guidance was recommended. The risks and benefits of the procedure were discussed in detail. She wishes to proceed. An appointment has been booked for the same. She needs a bung driver on the day of the procedure. She was given a prescription for ativan to be taken pre procedure. MEDICAL CERTIFICATION SPECIALIST online was checked. She was advised not to drive after taking ativan. [email or web address] Not available 12/29/2016 14:13:34 Plan of Treatment Reminders Order Date Submit Date Provider Last Modified By Organization Details Last Modified Time Details Appointments None recorded . Lab None recorded . Referral None recorded . Procedures None recorded . Surgeries None recorded . Imaging None recorded . Medication Orders Valium 5 mg tablet 012 05/17/19 12 MARIANNE Not available 3 04:58:37 Patient TargetsNo targets recorded. Patient Instructions Encounter Date Encounter Id Patient Instructions Last Modified By Organization Details Last Modified Time 05/13/2011 [id number] She was advised against bed rest lasting longer than four days and to continue activities as tolerated. [email or web address] Not available 05/17/2011 11:38:17 05/24/2011 [id number] She was advised against bed rest lasting longer than four days and to continue activities as tolerated. [email or web address] Not available 05/26/2011 09:03:07 Reason for Referral None Reported. Results Created Date Observation Date Name Description Value Unit Range Abnormal Flag Note LastModifiedBy Organization Detail LastModifiedTime 05/13/19 12 04/14/2011 gunner ghosh/robert duff tic resul t No observ ation record ed. [facility] [address] [place] [address], [address], 09/29/2012 04:58:35 Result Notes None recorded. 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 Procedures Surgical History Date Name Laterality Status Provider Name and Address Organization Details Recorded Time 05/24/19 12 Cervical Epidural Steroid injection under fluroscopic guidance completed Dennis Cobian MD [address] [facility] , [address], [place], [address], [place] - [facility] 05/26/2011 09:03:07 Cholecystectomy completed Dennis Cobian MD [address] [facility] , [address], [place], [address], [place] [facility] 12/22/2016 15:15:00 Breast Surgery completed Dennis [facility] [address] [facility] [address], [place], [address], [place] [facility] 12/22/2016 15:15:25 Tubal Ligation completed Nan Lilly [place] - [facility] 05/13/2011 14:28:46 Other completed Nan Lilly [place] - [facility] 05/13/2011 14:28:46 Imaging Results Imaging Date Name Status LastModified by Organiz ation Details LastModified Time 04/14/2011 imaging/diag nostic result completed [facility] [address] [place] [address], [address], 09/29/2012 04:58:35 Procedure Notes None recorded. Medical Equipment None Reported. Allergies Allergen ID Allergen Name Allergen Category Reaction Reaction Severity Criticality Documentation Date Start Date Code Code System Note Provider Name and Address Organization Details Recorded Time 77343 Cipro medicatio n anaphylax is Not available Not available 12/22/2016 3 RxNorm Dennis zimmerman MD [address] , [address], [place], [address], [place] [facility] 7 15:10:45 24352 Flagyl medicatio n anaphylax is Not available Not available 12/22/2016 6 RxNorm Dennis zimmerman MD [address] [facility] , [address], [facility] [place], [address], [place] - [facility] 7 15:11:01 1801 Rocephin medicatio n anaphylax is Not available Not available 05/13/2011 9449 RxNorm Nan Lillywilder brennan, [place] - [facility] 2 14:26:18 1802 Substance with sulfonami de structure and antibacte rial mechanism of action (substanc e) medicatio n Not available Not available Not available 05/13/2011 88050 8003 SNOMED GI upset Nansixto brennan, [place] - [facility] 2 14:26:18 1803 Midrin medicatio n anaphylax is Not available Not available 05/13/2011 90364 RxNorm Nansixto brennan, [place] - [facility] 2 14:26:18 Medications Name Sig Start Date Stop Date Status Note LastModified by Organization Details LastModified Time prednisone tab 5mg active Not Available Not Available Not Available tramadol hcl tab 50mg 12/22 completed Not Available Not Available Not Available nabumetone tab 750mg 12/22 completed Not Available Not Available Not Available tizanidine tab 4mg 12/22 completed Not Available Not Available Not Available cyclobenza pr tab 5mg 12/22 completed Not Available Not Available Not Available diazepam tab 5mg active Not Available Not Available Not Available fluconazol e 150 mg tablet 12/22 completed Not Available Not Available Not Available ondansetro n HCl 4 mg tablet 12/22 completed Not Available Not Available Not Available prednisone 20 mg tablet 12/22 completed Not Available Not Available Not Available prednisone 5 mg tablet 12/22 completed Not Available Not Available Not Available metronidaz ole 500 mg tablet 12/22 completed Not Available Not Available Not Available ciprofloxa ashley 500 mg tablet 12/22 completed Not Available Not Available Not Available peg-electr olyte solution 420 gram oral solution 12/22 completed Not Available Not Available Not Available Valium 5 mg tablet one tablet to be taken one hour prior to the procedur e and one tablet the night before the procedur e. 2011 active Not Available Not Available Not Avai lable clotrimazo le-betamet hasone 1 %-0.05 % topical cream 12/22 completed Not Available Not Available Not Available omeprazole 20 mg capsule,de layed release active Not Available Not Available Not Available dicyclomin e 10 mg capsule TAKE ONE CAPSULE BY MOUTH 3 TIMES A DAY NEEDED active Not Available Not Available No t Available amoxicilli n 875 mg-potassi um clavulanat e 125 mg tablet 12/22 completed Not Available Not Available Not Available nabumetone 500 mg tablet active Not Available Not Available Not Available oxycodone 5 mg tablet 12/22 completed Not Available Not Available Not Available loratadine daily active as needed Not Available Not Available Not Available Vitals Date Recorded Body height Body weight Body mass index (BMI) Heart rate Oxygen saturation Oxygen saturation in Arterial blood by Pulse oximetry Systolic blood pressure Diastolic blood pressure Provider Name and Address Organization Details Last Updated DateTime 2 160.02 cm 01845.8 555 g 26.6 kg/m2 94 /min 99 % 99 % 127 mm[Hg] 85 mm[Hg] Nan Lilly [place] - [facility] 2 14:25:11 Date Recorded Heart rate Oxygen saturation Oxygen saturation in Arterial blood by Pulse oximetry Systolic blood pressure Diastolic blood pressure Provider Name and Address Organization Details Last Updated DateTime 2 96 /min 98 % 98 % 147 mm[Hg] 97 mm[Hg] Nan Lilly [place] - [facility] 2 15:00:11 Date Recorded Heart rate Oxygen saturation Oxygen saturation in Arterial blood by Pulse oximetry Body height Body mass index (BMI) Body weight Systolic blood pressure Diastolic blood pressure Provider Name and Address Organization Details Last Updated DateTime 7 84 /min 98 % 98 % 160.02 cm 30.3 kg/m2 31041.3 g 130 mm[Hg] 79 mm[Hg] Dennis zimmerman MD [address] [place] [address] , [address], [facility] [place], [address], [place] - [facility] 7 15:08:35 Social History Question Answer Notes LastModified by Organizat ion Details LastModified Time Tobacco Smoking Status Never Smoker Not Available [employer] 12/21/2019 03:16:10 What Is Your Level Of Alcohol Consumption? None [id number] Information not available 12/21/2019 Are You Currently Employed? Yes [employer] [id number] Information not available 12/21/2019 Which Illicit Or Recreational Drugs Have You Used? 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 With Others [employer] [email or web address] Information not available 05/13/2011 Marital Status [email or web address] Informatio n not available 05/13/2011 What Was The Date Of Your Most Recent Tobacco Screening? 12/22/2016 [id number] Information not available 12/21/2019 Sex: Unknown Functional Status None recorded. Mental Status None recorded. Family History Relationship Description Onset Age of this Age Resolved Age Notes LastModified by Organization Details LastModified Time Mother Rheumatoid arthritis [id number] Not available 11/26/2012 03:02:00 Medical History Condition Response Arthritis Y Irritable Bowel Syndrome Y Gynecological HistoryNo gynecological history recorded. Obstetrics History GPAL:G 0 P 0 0 0 0 Past Encounters Encounter ID Performer Location Encounter Start Date Encounter Closed Date Diagnosis/Indication Diagnosis SNOMED-CT Code Diagnosis ICD10 Code Diagnosis Note [id number] [address] [place] [address] 05/13/2011 13:51:32 05/13/2011 15:31:18 [id number] [address] [facility] [place] [address] 05/24/2011 14:30:20 05/26/2011 09:04:16 [id number] Dennis Cobian MD PAIN OFFICE [address] [facility] [place] [address] 12/22/2016 14:58:52 12/29/2016 14:22:58 Cervical radiculopathy 73257836 M54.12 Degenerati on of cervical intervertebral disc 53137359 M50.30 Health Concerns Section Related Observation LastModified by Organization Detai ls LastModified Time None Recorded Concern Status LastModified by Organization Details LastModified Time None Recorded Advance Directives Directive None Recorded Payers Encounter Date Sequence Insurance Name Policy Number Policy Alves Covered Member ID Alves Member ID Guarantor Name 05/13/2011 1 [facility] [id number] Alyssa Espino [id number] Alyssa Espino 05/24/2011 1 [facility] [id number] Alyssa Espino [id number] Alyssa Espino 12/22/2016 1 [facility] [id number] Alyssa Espino [id number] Alyssa [place] Notes Date Note Type Note Provider Name and Address Organization Details Recorded Time 05/24/2011 text/html She is here for a trial of cervical epidural steroid injection under fluroscopic guidance. She has taken valium. Dennis Cobian MD [address] , [address], [place], [address], [employer] [facility] 05/26/2011 10:22:34 12/22/2016 text/html She is here for a follow up. She is complaining of neck pain radiating into right upper extremity. She had a cervical epidural steroid injection under fluoroscopic guidance on 05/24/2011 and states she had good pain benefit for a number of years . She had return of pain six months ago and is becoming progressively greater. She spends a lot of time typing on her computer. 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 She has no history of bladder or bowel incontinence. Dennis Cobian MD [address] , [address], [place], [address], [employer] [facility] 01/04/2017 12:16:53 OBGyn Episode No OBEpisode recorded.
--- OUTSIDE RECORDS SUMMARY | 2024-04-18 14:33 | XMS_ITS | Data Portability ---
Author Organization [place] [facility], Allergy Address [address] [place] [address] Assessment Encounter Date Assessment Date Assessment LastModified by Organization Details LastModified Time 10/26/2023 10/26/2023 58 year old female presents for follow up of her environmental allergies. She has done well with regimen of Flonase, Astelin and Zyrtec daily. She is not currently interested in more invasive procedures such as SCIT or SLIT. Azelastine prescribed today. She does have some buccal bite line changes. Hopefully this will improve with her new mouthguard. With respect to the thickening on the left side of tongue I have asked that she upload a copy of the pathology report from her dentist to our portal. This may represent oral lichen planus. I have advised her to avoid sodium brandon sulfate containing toothpastes and avoid alcohol containing mouthwash. She will follow up in one year. Seen with Dr Butler who took hx, examined patient and helped formulate plan david Not available 10/26/2023 12:10:44 Plan of Treatment Reminders Order Date Submit Date Provider Last Modified By Organization Details Last Modified Time Details Appointments None recorded. Lab None recorded. Referral None recorded. Procedures None recorded. Surgeries None recorded. Imaging None recorded. Medication Orders azelastine 205.5 mcg (0.15 %) nasal spray 2023 024 [email or web address] [id number], [address] [place], [address], 11:44:52 Patient TargetsNo targets recorded. Patient InstructionsNo instructions recorded. Reason for Referral None Reported. Results Created Date Observation Date Name Description Value Unit Range Abnormal Flag Note LastModifiedBy Organization Detail LastModifiedTime 10/26/1912/05/2020 imagi ng/di agnos tic resul t No observ ation record ed. [email or web address] Not Available 00:18:12 10/26/19 24 12/24/2020 imagi ng/di agnos tic resul t No observ ation record ed. [email or web address] Not Available 00:18:31 Result Notes None recorded. Problems Name Problem SNOMED Code Status Onset Date Resolution Date Notes Provider Name and Address Organization Details Recorded Time Chronic pansinusi tis 55087161 Active 2020 Chronic pansinusit is; Note: Date Diagnosed: 12/05/2020 10:16 AM (J32.4) Not Available [facility] 4 02:39:11 Dysphonia 06217949 Active 2021 Hoarseness ; Note: Date Diagnosed: 09/22/2021 4:47 PM (R49.0) Not Available [facility] 4 02:39:17 Nasal congestio n 28943298 Active 2021 Nasal congestion ; Note: Date Diagnosed: 11/16/2021 4:45 PM (R09.81) Not Available [facility] 4 02:39:13 Gastroeso phageal reflux disease without esophagit is 580656683 Active 2021 Gastro-eso phageal reflux disease without esophagiti s; Note: Date Diagnosed: 09/23/2021 9:50 AM (K21.9) Not Available [facility] 4 02:39:02 Allergic rhinitis caused by pollen 51524986 Active 2020 Allergic rhinitis due to pollen; Note: Date Diagnosed: 12/05/2020 10:16 AM (J30.1) Not Available [facility] 4 02:39:16 Posterior rhinorrhe a 86628343 Active 2021 Postnasal drip; Note: Date Diagnosed: 09/23/2021 9:50 AM (R09.82) Not Available [facility] 4 02:39:06 Oral lichen planus 451900272 Active 2023 FEDERICA CARDENAS PA-C [address] [facility], [place], [address] , [facility] 4 11:35:23 Lichen planus 8734830 Active 2023 FEDERICA CARDENAS PA-C [address] [facility] [address], [place], [address] , [facility] 4 11:45:10 Problem Notes None recorded. Procedures Surgical History None recorded. Imaging Results Imaging Date Name Status LastModified by Organiz ation Details LastModified Time 12/05/2020 imaging/diag nostic result completed Information not available 10/26/2023 00:18:12 12/24/2020 imaging/diag nostic result completed Information not available 10/26/2023 00:18:31 Procedure Notes None recorded. Medical Equipment None Reported. Allergies Allergen ID Allergen Name Allergen Category Reaction Reaction Severity Criticality Documentation Date Start Date Code Code System Note Provider Name and Address Organization Details Recorded Time 78732 Rocephin medicatio n other Not available Not available 07/19/2023 9449 RxNorm React ion: other react ion, Unkno wn; Not Available [facility] 4 00:56:14 16634 Midrin medicatio n other Not available Not available 07/19/2023 88816 RxNorm React ion: other react ion, Unkno wn; Not Available [facility] 4 00:56:16 23316 Flagyl medicatio n other Not available Not available 07/19/2023 6 RxNorm React ion: other react ion, Unkno wn; Not Available [facility] 4 00:56:19 56033 Cipro medicatio n other Not available Not available 07/19/202325234 3 RxNorm React ion: other react ion, Unkno wn; Not Available [facility] 4 00:56:21 Medications Name Sig Start Date Stop Date Status Note LastModified by Organization Details LastModified Time Prescript ion - Prior Authoriza tion Request active Script Copy/Amee or Auth^Scr ipt Copy/Amee or Auth_ Not Available Not Available Not Available Claritin 10 mg tablet 2020 active Medicati on ID: [id number] B rand Name: Claritin Send Method: E-Prescr ibed Sub s Allowed: subs OK Medic ationGen ericName : Claritin Not Available Not Available Not Available pantopraz ole 40 mg tablet,de layed release TAKE 1 TABLET BY MOUTH EVERY DAY active Not Available Not Available No t Available omeprazol e 20 mg capsule,d elayed release 2020 active Medicati on ID: [id number] B rand Name: omeprazo le Send Method: E-Prescr ibed Sub s Allowed: subs OK Speci al Instruct ion: TAKE ONE CAPSULE BY MOUTH TWICE A DAY Medi cationGe nericNam e: omeprazo le Not Available Not Available Not Available monteluka st 10 mg tablet TAKE 1 TABLET BY MOUTH AT BEDTIME active Not Available Not Available No t Available azelastin e 137 mcg (0.1 %) nasal spray Inhale 2 spray twice a day as directed 09/26 completed Medicati on ID: [id number] D uration Value: 30 Prescri bed By Name: VANE Manuel nd Name: azelasti ne Send Method: E-Prescr ibed Sub s Allowed: subs OK Speci al Instruct ion: 1 spray into each nostril BID Medi cationGe nericNam e: azelasti ne Not Available Not Available Not Available timolol maleate 0.5 % eye drops 2020 active Medicati on ID: [id number] B rand Name: timolol maleate Send Method: E-Prescr ibed Sub s Allowed: subs OK Speci al Instruct ion: INSTILL 1 DROP INTO BOTH EYES TWICE A DAY Medi cationGe nericNam e: timolol maleate Not Available Not Available Not Available dicyclomi ne 10 mg capsule TAKE 1 CAPSULE BY MOUTH THREE TIMES A DAY NEEDED active Not Available Not Available No t Available nabumeton e 500 mg tablet TAKE 1 TABLET BY MOUTH TWICE A DAY WITH FOOD active Not Available Not Available No t Available azelastin e 205.5 mcg (0.15 %) nasal spray [place] 1 spray twice a day by intranas al route for 30 days. 2023 active Not Available Not Available Not Avai lable Fiber (uday valentin) 0.4 gram capsule 2020 active Medicati on ID: [id number] B rand Name: Fiber (dipak valentin) Se nd Method: E-Prescr ibed Sub s Allowed: subs OK Medic ationGen ericName : Fiber (dipak valentin) Not Available Not Available Not Available Vitals Date Recorded Body height Body mass index (BMI) Body weight Provider Name and Address Organization Details Last Updated DateTime 10/26/2023 160.02 cm 26.6 kg/m2 13656.86 g Chiquita Canas [place] [facility] 10/26/2023 11:16:20 Social History None recorded. Functional Status None recorded. Mental Status None recorded. Family History Nothing Reported. Medical History No medical history recorded. Gynecological HistoryNo gynecological history recorded. Obstetrics History GPAL:G 0 P 0 0 0 0 Past Encounters Encounter ID Performer Location Encounter Start Date Encounter Closed Date Diagnosis/Indication Diagnosis SNOMED-CT Code Diagnosis ICD10 Code Diagnosis Note [id number] TOÑA DAVALOS MD [facility] [address] [address] 10/26/2023 11:08:27 10/26/2023 11:39:00 Posterior rhinorrhea 94335387 R09.82 Oral lichen planus 97437 9008 L43.9 Allergic rhinitis 025840 04 J30.9 Health Concerns Section Related Observation LastModified by Organization Detai ls LastModified Time None Recorded Concern Status LastModified by Organization Details LastModified Time None Recorded Advance Directives Directive None Recorded Payers Encounter Date Sequence Insurance Name Policy Number Policy Alves Covered Member ID Alves Member ID Guarantor Name 10/26/2023 1 [facility] [id number] Alyssa Espino [id number] Alyssa Espino Notes Date Note Type Note Provider Name and Address Organization Details Recorded Time 10/26/2023 text/html 58 year old femishmael godinez with history of GERD presents for re-evaluation of environmental allergies. She has not been seen in a couple of years. She has not had recent sinus infection. She feels her allergies and symptoms of congestion and postnasal drip are well controlled with azelastine nasal spray, Flonase, and Zyrtec. She stopped using Singulair three weeks ago and notices no change in her symptoms. She requests refill of azelastine. She also notes occasional burning on the left lateral tongue. She has had lesion in this area biopsied in the past by her oral surgeon. She reports that biopsy was negative for cancer. She is unsure what is causing these lesions. TOÑA BUTLER MD [address] [place] [address], [place], [address], [facility] - [facility] 10/26/2023 12:11:31 OBGyn Episode No OBEpisode recorded.
--- OUTSIDE RECORDS SUMMARY | 2024-04-18 14:33 | XMS_ITS | Clinical Summary ---
Author Organization [facility] Address [address] [place] [address] Care Team Providers Care Enterprise Systems Engineer Name Role Phone Unavailable Primary Care Provider Unavailabl e Medications dicyclomine (BENTYL) 10 mg capsuleIndicati ons:Irritable bowel syndrome (IBS) TAKE 1 CAPSULE BY MOUTH THREE TIMES A DAY NEEDED 90 capsule 2 02/13/2024 Active Social History Tobacco Use Types Packs/Day Years Used Date Smoking Tobacco: Never Assessed Comments Unknown Sex and Gender Information Value Date Recorded Sex Assigned at Not on file Legal Sex Female 10:49 AM EST Gender Identity Not on file Sexual Orientation Not on file Plan of Treatment Health Maintenance Due Date Last Done Comments Breast Cancer Screening 1965 DTaP,Tdap,and Td Vaccines (1 - Tdap) 1984 Hepatitis B Vaccines (1 of 3 - 19+ 3-dose series) 1984 Cervical Cancer Screening: P ap Smear 1986 Pneumococcal Vaccine: 50+ Ye ars (1 of 1 - PCV) 09/02/2015 Zoster Vaccines (1 of 2) 09/02/2015 Colorectal [...] patient's age to complete this topic Meningococcal B Vacine Aged Out No lo nger eligible based on patient's age to complete [...]
== END 2024-04-18 14:38 | disposition home or self-care (01) ==
PROVIDERS: PCP Internal Medicine; Visit Provider Internal Medicine
DX: E66.3 Overweight (principal); R73.02 Impaired glucose tolerance (oral); K21.9 Gastro-esophageal reflux disease without esophagitis; K58.9 Irritable bowel syndrome, unspecified; F43.21 Adjustment disorder with depressed mood; F41.1 Generalized anxiety disorder

== ENCOUNTER 2024-05-30 16:42 | Outpatient (REF) | payer OTHER, SELFPAY ==
--- NOTE | ~2024-05-30 | XR_ITS ---
EXAMINATION: XR SINUSES CLINICAL INFORMATION: R05.9 - Cough, unspecified COMPARISON: None available. TECHNIQUE: 3 views of the sinuses were obtained. FINDINGS: Paranasal sinuses are well pneumatized and aerated. No air-fluid levels. Metallic piercing on the right side of the nose. XR/XR sinus min 3V IMPRESSION: No paranasal sinus disease. Electronically signed by: Gerber Wall MD 05/31/2024 07:16 AM EDT
--- OUTSIDE RECORDS SUMMARY | 2024-05-30 19:05 | XMS_ITS | Encounter Summary ---
Author Organization [facility] Address [address] [place] [address] Care Team Providers Care Analytics Director Name Role Phone Alan Bedolla MD Primary Care Provider [phone] Encounter Details Date Type Department Care Team (Late st Contact Info) Description 04/30/2024 Telephone Gastroenterology - [address] [place] [phone] Sreedhar Juarez MD [address] [place] [address] Social History Tobacco Use Types Packs/Day Years Used Date Smoking Tobacco: Never Assessed Comments Unknown Sex and Gender Information Value Date Recorded Sex Assigned at Not on file Legal Sex Female 10:49 AM EST Gender Identity Not on file Sexual Orientation Not on file documented as of this encounter Progress Notes * Carisa Hogan MA - 05/01/2024 8:53 AM EST Lmom to let patient know to start a 24 hour clear liquid diet, start with heather tea for nausea, miralax for cramping and bloating, and to call in a few days. I also let her know that if symptoms gotworse to go to the emergency room. * Jodee Phipps - 04/30/2024 8:48 AM EST PT CALLED STATING SHE IS HAVING SOME RECTAL BLEEDING (BRIGHT RED), NAUSEA, STOMACH CRAMPS/PAIN, DECREASED APPETITE, AND SOME PREVIOUS VOMITING. I HAVE HER SCHEDULED IN THE NEXT AVAILABLE BUT PT IS WONDERING WHAT TO DO IN THE MEAN TIME? documented in this encounter Plan of Treatment Not on file documented as of this encounter Visit Diagnoses Not on filedocumented in this encounter Care Teams Analytics Director Relationship Specialty Start Date End Date Alan Bedolla MD [address] [place] [address] PCP - General Internal Medicine 04/30/24 documented as of this encounter
--- OUTSIDE RECORDS SUMMARY | 2024-05-30 19:05 | XMS_ITS | Encounter Summary ---
Author Organization [facility] Address [address] [place] [address] Care Team Providers Care Electronic Typesetting Machine Operator Name Role Phone Alan Bedolla MD Primary Care Provider [phone] Reason for Visit * Reason Comments Follow-up Encounter Details Date Type Department Care Team (Latest Contact Info) Description 05/30/2024 12:40 PM EDT Office Visit Gastroenterology - [address] [place] [phone] Jennifer Almendarez PA [address] [place] [address] Gastroesophageal reflux disease without esophagitis (Primary Dx); Rectal bleeding Social History Tobacco Use Types Packs/Day Years Used Date Smoking Tobacco: Never Assessed Comments Unknown Sex and Gender Information Value Date Recorded Sex Assigned at Not on file Legal Sex Female 10:49 AM EST Gender Identity Not on file Sexual Orientation Not on file documented as of this encounter Last Filed Vital Signs Vital Sign Reading Time Taken Comments Blood Pressure - - Pulse - - Temperature - - Respiratory Rate - - Oxygen Saturation - - Inhaled Oxygen Concentration - - Weight 73.9 kg (163 lb) 05/30/2024 12:46 PM EDT Height 160 cm (5' 3 ) 05/30/2024 12:46 PM EDT Body Mass Index 28.87 05/30/2024 12:46 PM EDT documented in this encounter Ordered Prescriptions Prescription Sig Dispense Quantity Refills Last Filled Start Date End Date pantoprazole (PROTONIX) 40 mg EC tabletIndications: Gastroesophageal reflux disease without esophagitis Take 1 tablet (40 mg total) by mouth 2 (two) times a day. Do not crush, chew, or split. 180 each 3 05/30/2024 05/30/2025 documented in this encounter Progress Notes * GISEL Dugan - 05/30/2024 12:40 PM EDTAssociated Problem(s): Gastroesophageal reflux disease without esophagitis Increase pantoprazole to 40 mg twice a day for the next 30 days N.p.o. at least 3 hours before bed Encouraged her to discuss chest burning with PCP as well to rule out cardiac etiology. Orders: pantoprazole (PROTONIX) 40 mg EC tablet; Take 1 tablet (40 mg total) by mouth 2 (two) times a day. Do not crush, chew, or split. * GISEL Dugan - 05/30/2024 12:40 PM EDT Subjective Last Colononscopy/EGD: Colon 04/2022 - tics throughout, TA x2 (7yr); Colon/EGD 06/2016 HPI: Alyssa Espino is a 58 y.o. old female who presents to the gastroenterology department today for rectal bleeding and nausea. She was experiencing loose stools and saw some bright red blood on the toilet paper. That happened over a couple of days and has not happened since. Is been over a monthsince that occurred. Her bowel movements are regular right now. She is having more issues with her reflux currently. She had reflux that kept her up all night recently. She takes pantoprazole 40 mg once a day. She took a second 1 at that time. She has been under a lot of stress recently. Her son last July and she is raising her 2 grandchildren. She had a persistent sinus infection overthe winter and was on antibiotics a couple of times. She did not feel that it was clearing up and had some shortness of breath and went to the emergency room recently. She reports an unremarkable workup at that time including an EKG. That was before the GERD symptoms however. She was placed on steroids at the emergency room and given an inhaler. She denied melena. She denied dysphagia. She is worried about immunodeficiency and is following up with her primary care to discuss that more this week. Review of Systems Constitutional: Negative. Respiratory: Negative. Cardiovascular: Negative. Gastrointestinal: Positive for anal bleeding. Reflux Loose stool Genitourinary: Negative. PROBLEM LIST: Patient Active Problem List Diagnosis Gastroesophageal reflux disease without esophagitis Irritable bowel syndrome with constipation Diverticulitis Endometriosis Arthritis Glaucoma Urinary incontinence PAST MEDICAL HISTORY: No past medical history on file. PAST SURGICAL HISTORY: Past Surgical History: Procedure Laterality Date CHOLECYSTECTOMY COLONOSCOPY 06/2022 tics throughout, TAx2 (7yr) COLONOSCOPY 06/2016 tics ESOPHAGOGASTRODUODENOSCOPY 06/2016 unremarkable TUBAL LIGATION SOCIAL HISTORY: Social History Tobacco Use Smoking status: Not on file Smokeless tobacco: Not on file Substance Use Topics Alcohol use: Not on file FAMILY HISTORY: No family history on file. ACTIVE MEDICATIONS: Current Outpatient Medications Medication Sig Dispense Refill dicyclomine (BENTYL) 10 mg capsule TAKE 1 CAPSULE BY MOUTH THREE TIMES A DAY NEEDED 90 capsule 0 pantoprazole (PROTONIX) 40 mg EC tablet Take 1 tablet (40 mg total) by mouth 1 (one) time each day. pantoprazole (PROTONIX) 40 mg EC tablet Take 1 tablet (40 mg total) by mouth 2 (two) times a day. Do not crush, chew, or split. 180 each 3 No current facility-administered medications for this visit. ALLERGIES: Allergies Allergen Reactions Ceftriaxone Anaphylaxis Fzmcnkz-Yeohkzmjz-Whqtssmxtdpn Anaphylaxis Ciprofloxacin Hives Metronidazole Hives Sulfa (Sulfonamide Antibiotics) GI intolerance Wt Readings from Last 1 Encounters: 05/30/24 1246 73.9 kg (163 lb) Physical Exam Constitutional: Appearance: Normal appearance. HENT: Head: Normocephalic. Cardiovascular: Rate and Rhythm: Normal rate and regular rhythm. Pulmonary: Effort: Pulmonary effort is normal. Breath sounds: Normal breath sounds. Abdominal: General: Bowel sounds are normal. There is no distension. Palpations: Abdomen is soft. There is no mass. Tenderness: There is no abdominal tenderness. There is no guarding or rebound. Skin: General: Skin is warm. Neurological: Mental Status: She is alert and oriented to person, place, and time. Psychiatric: Mood and Affect: Mood normal. Behavior: Behavior normal. IMPRESSION: 1. Gastroesophageal reflux disease without esophagitis 2. Rectal bleeding Assessment/Plan Assessment & Plan Gastroesophageal reflux disease without esophagitis Increase pantoprazole to 40 mg twice a day for the next 30 days N.p.o. at least 3 hours before bed Encouraged her to discuss chest burning with PCP as well to rule out cardiac etiology. Orders: pantoprazole (PROTONIX) 40 mg EC tablet; Take 1 tablet (40 mg total) by mouth 2 (two) times a day. Do not crush, chew, or split. Rectal bleeding Asymptomatic Consistent with distal etiology, likely hemorrhoids Follow up in about 2 months (around 07/30/2024). GISEL Dugan 4:28 PM EDT documented in this encounter Plan of Treatment Not on file documented as of this encounter Visit Diagnoses Diagnosis Gastroesophageal reflux disease without esophagitis- Primary Esophageal reflux Rectal bleeding Hemorrhage of rectum and anus documented in this encounter Historical Medications * This list may reflect changes made after this encounter. pantoprazole (PROTONIX) 40 mg EC tablet Take 1 tablet (40 mg total) by mouth 1 (one) time each day. added in this encounter Care Teams Electronic Typesetting Machine Operator Relationship Specialty Start Date End Date Alan Bedolla MD [address] [place] [address] PCP - General Internal Medicine 04/30/24 documented as of this encounter
--- OUTSIDE RECORDS SUMMARY | 2024-05-30 19:05 | XMS_ITS | Encounter Summary ---
Author Organization [facility] Address [address] [place] [address] Care Team Providers Care Product Engineering Manager Name Role Phone Alan Bedolla MD Primary Care Provider Encounter Details Date Type Department Care Team (Late st Contact Info) Description 05/30/2024 Telephone Gastroenterology - [address] [place] [phone] Jennifer Almendarez PA [address] [place] [address] Social History Tobacco Use Types Packs/Day Years Used Date Smoking Tobacco: Never Assessed Comments Unknown Sex and Gender Information Value Date Recorded Sex Assigned at Not on file Legal Sex Female 10:49 AM EST Gender Identity Not on file Sexual Orientation Not on file documented as of this encounter Progress Notes * Maia Jones - 05/30/2024 1:24 PM EDT Pt left without scheduling. Follow-up disposition: Follow up in about 2 months (around 07/30/2024). Check out comments: 01 pt documented in this encounter Plan of Treatment Not on file documented as of this encounter Visit Diagnoses Not on filedocumented in this encounter Care Teams Product Engineering Manager Relationship Specialty Start Date End Date Alan Bedolla MD [address] [place] [address] PCP - General Internal Medicine 04/30/24 documented as of this encounter
--- OUTSIDE RECORDS SUMMARY | 2024-05-30 19:05 | XMS_ITS | Data Portability ---
Author Organization [facility] Address [address] [facility] [address] [place] [address] Care Team Providers Care Distribution Center Associate Name Role Phone JON BALTAZAR Primary Care Provider Assessment Encounter Date Assessment Date Assessment LastModified [...] booked for the same. She needs a bobcat driver/labor on the day of the procedure. She [...] booked for the same. She needs a bobcat driver/labor on the day of the procedure. She was given a prescription for ativan to be taken pre procedure. DYNAMOMETER TESTER online was checked. She was advised not [...] By Organization Details Last Modified Time 05/13/2011 [id number] She was advised against bed rest lasting longer than four days and to continue activities as tolerated. [email or web address] Not available 05/17/2011 11:38:17 05/24/2011 [id number] She was advised against bed rest lasting longer than four days and to continue activities as tolerated. [email or web address] Not available 05/26/2011 09:03:07 Reason for Referral None Reported. Results Created Date Observation Date Name Description Value Unit Range Abnormal Flag Note LastModifiedBy Organization Detail LastModifiedTime 05/13/19 12 04/14/2011 gunner ghosh/rboert duff tic resul t No observ ation record ed. [facility] [address] [place] [address], [address], 09/29/2012 04:58:35 Result Notes None recorded. 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 Procedures Surgical History Date Name Laterality Status Provider Name and Address Organization Details Recorded Time 05/24/19 12 Cervical Epidural Steroid injection under fluroscopic guidance completed Dennis Cobian MD [address] [facility] , [address], [place], [address], [place] [facility] 05/26/2011 09:03:07 Cholecystectomy completed Dennis Cobian MD [address] [facility] , [address], [place], [address], [place] [facility] 12/22/2016 15:15:00 Breast Surgery completed Dennis Cobian [facility] [address] [facility] [address], [place], [address], [place] [facility] 12/22/2016 15:15:25 Tubal Ligation completed Nan Lilly [place] - [facility] 05/13/2011 14:28:46 Other completed Nan Lilly [place] - [facility] 05/13/2011 14:28:46 Imaging Results Imaging Date Name Status LastModified by Organiz ation Details LastModified Time 04/14/2011 imaging/diag nostic result completed [facility] [address] [place] [address], [address], 09/29/2012 04:58:35 Procedure Notes None recorded. Medical Equipment None Reported. Allergies Allergen ID Allergen Name Allergen Category Reaction Reaction Severity Criticality Documentation Date Start Date Code Code System Note Provider Name and Address Organization Details Recorded Time 70240 Cipro medicatio n anaphylax is Not available Not available 12/22/2016 3 RxNorm Dennis zimmerman MD [address] , [address], [place], [address], [place] [facility] 7 15:10:45 37079 Flagyl medicatio n anaphylax is Not available Not available 12/22/2016 6 RxNorm Dennis zimmerman MD [address] [facility] , [address], [facility] [place], [address], [place] - [facility] 7 15:11:01 1801 Rocephin medicatio n anaphylax is Not available Not available 05/13/2011 9449 RxNorm Nan Lillywilder brennan, [place] - [facility] 2 14:26:18 1802 Substance with sulfonami de structure and antibacte rial mechanism of action (substanc e) medicatio n Not available Not available Not available 05/13/2011 26970 8003 SNOMED GI upset Nansixto brennan, [place] - [facility] 2 14:26:18 1803 Midrin medicatio n anaphylax is Not available Not available 05/13/2011 40885 RxNorm Nansixto brennan, [place] - [facility] [...] Details Last Updated DateTime 2 160.02 cm 07179.8 555 g 26.6 kg/m2 94 /min 99 % 99 % 127 mm[Hg] 85 mm[Hg] Nan Lilly [place] - [facility] 2 14:25:11 Date Recorded Heart rate Oxygen saturation Oxygen saturation in Arterial blood by Pulse oximetry Systolic blood pressure Diastolic blood pressure Provider Name and Address Organization Details Last Updated DateTime 2 96 /min 98 % 98 % 147 mm[Hg] 97 mm[Hg] Nan Lilly [place] [facility] 2 15:00:11 Date Recorded Heart rate Oxygen saturation Oxygen saturation in Arterial blood by Pulse oximetry Body height Body mass index (BMI) Body weight Systolic blood pressure Diastolic blood pressure Provider Name and Address Organization Details Last Updated DateTime 7 84 /min 98 % 98 % 160.02 cm 30.3 kg/m2 48458.3 g 130 mm[Hg] 79 mm[Hg] Dennis zimmerman MD [address] [place] [address] , [address], [facility] [place], [address], [place] - [facility] 7 15:08:35 Social History Question Answer Notes LastModified by Organizat ion Details LastModified Time Tobacco Smoking Status Never Smoker Not Available [employer] 12/21/2019 03:16:10 What Is Your Level Of Alcohol Consumption? 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 With Others And 2 Sons [email or web address] Information not available 05/13/2011 Marital Status [email or web address] Informatio n not available 05/13/2011 What Was The Date Of Your Most Recent Tobacco Screening? 12/22/2016 [id number] Information not available 12/21/2019 Sex: Unknown Functional Status None recorded. Mental Status None recorded. Family History Relationship Description Onset Age of this Age Resolved Age Notes LastModified by Organization Details LastModified Time Mother Rheumatoid arthritis [id number] [id number] Not available 11/26/2012 03:02:00 Medical History Condition Response Arthritis Y Irritable Bowel Syndrome Y Gynecological HistoryNo gynecological history recorded. Obstetrics History GPAL:G 0 P 0 0 0 0 Past Encounters Encounter ID Performer Location Encounter Start Date Encounter Closed Date Diagnosis/Indication Diagnosis SNOMED-CT Code Diagnosis ICD10 Code Diagnosis Note [id number] PAIN OFFICE [address] [place] [address] 05/13/2011 13:51:32 05/13/2011 15:31:18 [id number] PAIN OFFICE [address] [facility] [place] [address] 05/24/2011 14:30:20 05/26/2011 09:04:16 [id number] Dennis Cobian MD PAIN OFFICE [address] [facility] [place] [address] 12/22/2016 14:58:52 12/29/2016 14:22:58 Cervical radiculopathy 27942693 M54.12 Degenerati on of cervical intervertebral disc 27089484 M50.30 Health Concerns Section Related Observation LastModified by Organization Detai ls LastModified Time None Recorded Concern Status LastModified by Organization Details LastModified Time None Recorded Advance Directives Directive None Recorded Payers Encounter Date Sequence Insurance Name Policy Number Policy Alves Covered Member ID Alves Member ID Guarantor Name 05/13/[address] [facility] [id number] Alyssa Espino [id number] Alyssa Tucker Coffeen 05/24/[address] [facility] [id number] Alyssa Espino [id number] Alyssa Espino 12/22/[address] [facility] [id number] Alyssa Espino [id number] Alyssa Tucker Srinivas Notes Date Note Type Note Provider Name and Address Organization Details Recorded Time 05/24/2011 text/html She is here for a trial of cervical epidural steroid injection under fluroscopic guidance. She has taken valium. Dennis Cobian MD [address] , [address], [place], [address], [employer] [facility] 05/26/2011 10:22:34 12/22/2016 text/html She [...] her computer. 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 She has no history of bladder or bowel incontinence. Dennis Cobian MD [address] , [address], [place], [address], [employer] [facility] 01/04/2017 12:16:53 OBGyn Episode No OBEpisode recorded.
--- OUTSIDE RECORDS SUMMARY | 2024-05-30 19:05 | XMS_ITS | Clinical Summary ---
Author Organization [facility] [address] [facility] Address [address] [place] [address] Phone Care Team Providers Care Safety Deposit Supervisor Name Role Phone Alan Bedolla MD Primary Care Provider [phone] Allergies Active Allergy Reactions Criticality Noted Date Comments Ceftriaxone Anaphylaxis High 05/30/2024 Ciprofloxacin Hives 05/30/2024 Rhkqkjw-Zawxhmjvs-Gpexfelxacit Anaphylaxis High 05/06 Metronidazole Hives 05/30/2024 Sulfa (Sulfonamide Antibiotics) GI intolerance 05/30/2024 Medications dicyclomine (BENTYL) 10 mg capsuleIndicati ons:Irritable bowel syndrome (IBS) TAKE 1 CAPSULE BY MOUTH THREE TIMES A DAY NEEDED 90 capsule 5 Active pantoprazole (PROTONIX) 40 mg EC tablet Take 1 tablet (40 mg total) by mouth 1 (one) time each day. Active pantoprazole (PROTONIX) 40 mg EC tabletIndicatio ns:Gastroesopha geal reflux disease without esophagitis Take 1 tablet (40 mg total) by mouth 2 (two) times a day. Do not crush, chew, or split. 180 each 3 5 026 Active dicyclomine (BENTYL) 10 mg capsuleIndicati ons:Irritable bowel syndrome (IBS) TAKE 1 CAPSULE BY MOUTH THREE TIMES A DAY NEEDED 90 capsule 2 4 025 Discontinued Active Problems Problem Noted Date Diagnosed Date Gastroesophageal reflux disease without esophagi tis 05/30/2024 Assessment & Plan (05/30/2024 4:40 PM EDT): Increase pantoprazole to 40 mg twice a day for the next 30 days N.p.o. at least 3 hours before bed Encouraged her to discuss chest burning with PCP as well to rule out cardiac etiology. Orders: pantoprazole (PROTONIX) 40 mg EC tablet; Take 1 tablet (40 mg total) by mouth 2 (two) times a day. Do not crush, chew, or split. Irritable bowel syndrome with constipation 05/30 Diverticulitis 05/30/2024 Endometriosis 05/30/2024 Arthritis 05/30/2024 Glaucoma 05/30/2024 Urinary incontinence 05/30/2024 Overview (05/30/2024): S/p sacral nerve stimulation Encounters Date Type Department Care Team Description 05/30/2024 12:40 PM EDT Office Visit Gastroenterology - [address] [phone] Jennifer Almendarez PA Gastroesophageal reflux disease without esophagitis (Primary Dx); Rectal bleeding 05/30/2024 Telephone Gastroenterology - [address] [place] [address] [phone] Jennifer Almendarez PA 04/30/2024 Telephone Gastroenterology - [address] [phone] Sreedhar Juarez MD from Last 3 Months Surgical History Surgery Date Site/Laterality Comments CHOLECYSTECTOMY TUBAL LIGATION COLONOSCOPY 06/05/2022 - 07/04/2022 tics throughout, TAx2 (7yr) COLONOSCOPY 06/05/2016 - 07/04/2016 tics ESOPHAGOGASTRODUODENOSCOPY 06/05/2016 - 07/04/2016 unremarkable Social History Tobacco Use Types Packs/Day Years Used Date Smoking Tobacco: Never Assessed Comments Unknown Sex and Gender Information Value Date Recorded Sex Assigned at Not on file Legal Sex Female 10:49 AM EST Gender Identity Not on file Sexual Orientation Not on file Obstetrics History Last Filed Vital Signs Vital Sign Reading Time Taken Comments Blood Pressure - - Pulse - - Temperature - - Respiratory Rate - - Oxygen Saturation - - Inhaled Oxygen Concentration - - Weight 73.9 kg (163 lb) 05/30/2024 12:46 PM EDT Height 160 cm (5' 3 ) 05/30/2024 12:46 PM EDT Body Mass Index 28.87 05/30/2024 12:46 PM EDT Plan of Treatment Health Maintenance Due Date Last Done Comments Breast Cancer Screening 1965 Hepatitis B Vaccines (1 of 3 - 19+ 3-dose series) 1984 Cervical Cancer Screening: Pap Smear 1986 Pneumococcal Vaccine: 50+ Years (1 of 1 - PCV) 09/02/2015 Colorectal Cancer Screening: Colonoscopy 09/27/2023 Depression Screening 09/27/2023 HIV Screening 09/27/2023 Hepatitis C Screening 09/27/2023 Social Influencers of Health Screening 09/27/2023 COVID-19 Vaccine (2023- season) 2023 01/25/2022, 01/24/2021, 04/19/2020, Additional history exists DTaP,Tdap,and Td Vaccines (3 - Td or Tdap) 12/31/2027 12/30/2017, 05/26/2009 Hepatitis A Vaccines Aged Out 05/26/2009 No long er eligible based on patient's age to complete this topic Zoster Vaccines Completed 01/27/2020, 11/24/2019 Influenza Vaccine Completed 11/01/2023, , 12/09/2021, Additional history exists HIB Vaccines Aged Out No longer eligi [...] age to complete this topic Pneumococcal Vaccine: Pediatrics (0 to 5 Years) and At-Risk Patients (6 to 64 Years) Aged Out No longer eligible based on patient's age to complete this topic RSV Immunization Patients Under 20 months Aged Out No longer eligible based on patient's age to complete this topic Varicella Vaccines Aged Out No longer eligible based on patient's age to complete this topic Insurance [facility] Care Teams Safety Deposit Supervisor Relationship Specialty Start Date End Date Alan Bedolla MD [address] [place] [address] PCP - General Internal Medicine 04/30/24
--- OUTSIDE RECORDS SUMMARY | 2024-05-30 19:05 | XMS_ITS | Data Portability ---
Author Organization [place] - [facility], Allergy Address [address] [place] [phone] Assessment Encounter Date Assessment Date Assessment LastModified [...] spray 2023 024 [email or web address] [id number], [address] [place], [address], 11:44:52 Patient TargetsNo targets recorded. Patient InstructionsNo [...] Organization Details Recorded Time Chronic pansinusi tis 77492609 Active 2020 Chronic pansinusit is; Note: Date Diagnosed: 12/05/2020 10:16 AM (J32.4) Not Available [facility] 4 02:39:11 Dysphonia 96006376 Active 2021 Hoarseness ; Note: Date Diagnosed: 09/22/2021 4:47 PM (R49.0) Not Available [facility] 4 02:39:17 Nasal congestio n 36665745 Active 2021 Nasal congestion ; Note: Date Diagnosed: 11/16/2021 4:45 PM (R09.81) Not Available [facility] 4 02:39:13 Gastroeso phageal reflux disease without esophagit is 609774508 Active 2021 Gastro-eso phageal reflux disease without esophagiti s; Note: Date Diagnosed: 09/23/2021 9:50 AM (K21.9) Not Available [facility] 4 02:39:02 Allergic rhinitis caused by pollen 98914550 Active 2020 Allergic rhinitis due to pollen; Note: Date Diagnosed: 12/05/2020 10:16 AM (J30.1) Not Available [facility] 4 02:39:16 Posterior rhinorrhe a 94853310 Active 2021 Postnasal drip; Note: Date Diagnosed: 09/23/2021 9:50 AM (R09.82) Not Available [facility] 4 02:39:06 Oral lichen planus 983331252 Active 2023 FEDERICA CARDENAS PA-C [address] [facility] [address], [place], [address] , [facility] 4 11:35:23 Lichen planus 6673968 Active 2023 FEDERICA CARDENAS PA-C [address] [facility] [address], [place], [address] , [facility] 4 11:45:10 Problem Notes None recorded. [...] Name and Address Organization Details Recorded Time 67627 Rocephin medicatio n other Not available Not available 07/19/2023 9449 RxNorm React ion: other react ion, Unkno wn; Not Available [facility] 4 00:56:14 19476 Midrin medicatio n other Not available Not available 07/19/2023 94982 RxNorm React ion: other react ion, Unkno wn; Not Available [facility] 4 00:56:16 84407 Flagyl medicatio n other Not available Not available 07/19/2023 6 RxNorm React ion: other react ion, Unkno wn; Not Available [facility] 4 00:56:19 30415 Cipro medicatio n other Not available Not available 07/19/202352568 3 RxNorm React ion: other react ion, Unkno wn; Not Available [facility] 4 00:56:21 Medications Name Sig Start Date Stop Date Status Note LastModified by Organization Details LastModified Time Prescript ion - Prior Authoriza tion Request active Script Copy/Amee or Auth^Scr ipt Copy/Amee or Auth_ Not Available Not Available Not Available Claritin 10 mg tablet 2020 active Medicati on ID: [id number] B rand Name: Claritin Send Method: E-Prescr ibed Sub s Allowed: subs OK Medic ationGen ericName : Claritin Not Available Not Available Not Available pantopraz ole 40 mg tablet,de layed release TAKE 1 TABLET BY MOUTH EVERY DAY active Not Available Not Available No t Available omeprazol e 20 mg capsule,d elayed release 2020 active Medicati on ID: [id number] B rand Name: omeprazo le Send Method: [...] as directed 09/26 completed Medicati on ID: [id number] D uration Value: 30 Prescri bed By Name: VANE Manuel nd Name: azelasti ne Send Method: E-Prescr ibed Sub s Allowed: subs OK Speci al Instruct ion: 1 spray into each nostril BID Medi cationGe nericNam e: azelasti ne Not Available Not Available Not Available timolol maleate 0.5 % eye drops 2020 active Medicati on ID: [id number] B rand Name: timolol maleate Send Method: [...] e 205.5 mcg (0.15 %) nasal spray [place] 1 spray twice a day by intranas al route for 30 days. 2023 active Not Available Not Available Not Avai lable Fiber (uday valentin) 0.4 gram capsule 2020 active Medicati on ID: [id number] B rand Name: Fiber (dipak valentin) Se nd Method: E-Prescr ibed Sub s Allowed: subs OK Medic ationGen ericName : Fiber (dipak valentin) Not Available Not Available Not Available Vitals Date Recorded Body height Body mass index (BMI) Body weight Provider Name and Address Organization Details Last Updated DateTime 10/26/2023 160.02 cm 26.6 kg/m2 45195.86 g Chiquita Canas [place] - [facility] 10/26/2023 11:16:20 Social History None recorded. Functional Status None recorded. Mental Status None recorded. Family History Nothing Reported. Medical History No medical history recorded. Gynecological HistoryNo gynecological history recorded. Obstetrics History GPAL:G 0 P 0 0 0 0 Past Encounters Encounter ID Performer Location Encounter Start Date Encounter Closed Date Diagnosis/Indication Diagnosis SNOMED-CT Code Diagnosis ICD10 Code Diagnosis Note [id number] TOÑA DAVALOS MD [facility] [address] [phone] 10/26/2023 11:08:27 10/26/2023 11:39:00 Posterior rhinorrhea 94531408 R09.82 Oral lichen planus 01677 9008 L43.9 Allergic rhinitis 642626 04 J30.9 Health Concerns Section Related Observation LastModified by Organization Detai ls LastModified Time None Recorded Concern Status LastModified by Organization Details LastModified Time None Recorded Advance Directives Directive None Recorded Payers Encounter Date Sequence Insurance Name Policy Number Policy Alves Covered Member ID Alves Member ID Guarantor Name 10/26/2023 1 [facility] [id number] Alyssa Espino [id number] Alyssa Espino Notes Date Note Type Note [...] is causing these lesions. TOÑA BUTLER MD [address] [place] [address], [place], [address], [facility] - [facility] 10/26/2023 12:11:31 OBGyn Episode No OBEpisode recorded.
== END 2024-05-30 16:43 | disposition home or self-care (01) ==
LOC: HO.XRAY 16:42
PROVIDERS: Visit Provider Internal Medicine
DX: R05.9 Cough, unspecified (principal)
CPT/HCPCS: 70220

== ENCOUNTER → 2024-05-30 16:43 | Outpatient (BNV) | payer OTHER, SELFPAY | PROVIDERS: Visit Provider Radiology Diagnostic Radiology | DX: R05.9 Cough, unspecified (principal) | CPT/HCPCS: 70220 ==

== ENCOUNTER 2024-06-01 09:54 | Outpatient (AMB) | payer OTHER, SELFPAY ==
--- NOTE | 2024-06-01 10:06 | A.OFFPC_ITS ---
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 Accompanied by: Spouse Allergies acetaminophen [From Midrin] Allergy (Mild, Verified 06/01/24 10:08) unknown dichloralphenazone [From Midrin] Allergy (Mild, Verified 06/01/24 10:08) unknown isometheptene [From Midrin] Allergy (Mild, Verified 06/01/24 10:08) unknown ceftriaxone [From Rocephin] Allergy (Unknown, Verified 06/01/24 10:08) Unknown ciprofloxacin [Cipro] Allergy (Unknown, Verified 06/01/24 10:08) Unknown metronidazole [Flagyl] Allergy (Unknown, Verified 06/01/24 10:08) Unknown Sulfa (Sulfonamide Antibiotics) Allergy (Unknown, Verified 06/01/24 10:08) Unknown timolol Allergy (Intermediate, Uncoded 06/01/24 10:08) vision changes Tobacco use date assessed: 06/01/24 Dental Screening Dental Screen Date: 04/18/24 HPI HPI Comments History of Present Illness Details 58 y/o female patient who presents to [facility] for EDF. She was admitted at [facility] on 05/18/24 for Acute Bronchitis. Chest Xray was negative for Pneumonia and SARs was negative also. She was discharged home the same day on prednisone. [facility] Medical History (Updated 06/01/24 @ 10:25 by Pati Acosta NP) Acute bronchitis Closed arm fracture Chronic sinusitis Fecal incontinence Impaired glucose tolerance GERD (gastroesophageal reflux disease) Open-angle glaucoma Right wrist fracture Right carpal tunnel syndrome Diverticulitis Osteoarthritis Glaucoma Irritable bowel syndrome Impaired ability of von Willebrand factor (vWF) to agglutinate platelets Surgical History H/O pelvic surgery History of endometrial ablation H/O bilateral breast reduction surgery History of cholecystectomy History of tubal ligation Family History Father Basal cell carcinoma COPD (chronic obstructive pulmonary disease) Mother Dementia Paternal Grandmother Stroke Social History Housing: House Alcohol intake: never Patient Tobacco Use Status: Never used Tobacco Tobacco use type: Cigarette e-Cigarette/Vaping Use: Never Used Second Hand Smoke Exposure: No service: No Current occupational status: employed Current occupational exposures/hazards: No Cognitive needs: No Hearing needs: No Vision needs: Yes Questionnaire PHQ-9 Over the last 2 weeks, how often have you been bothered by any of the following problems? 1. Little interest or pleasure in doing things: not at all 2. Feeling down, depressed, or hopeless: not at all 3. Trouble falling or staying asleep, or sleeping too much: not at all 4. Feeling tired or having little energy: not at all 5. Poor appetite or overeating: not at all 6. Feeling bad about yourself - or that you are a failure or have let yourself or your family down: not at all 7. Trouble concentrating on things, such as reading the newspaper or watching television: not at all 8. Moving or speaking so slowly that other people could have noticed. Or the opposite - being so fidgety or restless that you have been moving around a lot more than usual: not at all 9. Thoughts that you would be better off or of hurting yourself in some way: not at all Total score: 0 Depression Screening Interpretation: Negative Depression Screening Done: Yes Source: Developed by Drs. Esteban Rivers, Ellen Valenzuela, Duncan Porras and colleagues, with an educational chela from [employer]. Thrive Questionnaire Date Thrive assessed: 04/18/24 AUDIT C Alcohol Use Questionnaire (AUDIT-C) 1. How often do you have a drink containing alcohol?: Never 3. How often do you have six or more drinks on one occasion?: Never Total Score: 0 TAWANNA-7 AMB Questionnaire TAWANNA-7 Date TAWANNA - 7 assessed: 04/18/24 Source: Developed by Drs. Esteban Rivers, Ellen Valenzuela, Duncan Porras and colleagues, with an educational chela from [employer]. Physical exam (Primary Care) Vital Signs: Last Vital Signs Temp 98 F 06/01/24 10:08 Pulse 93 06/01/24 10:08 BP 122/66 06/01/24 10:08 Pulse Ox 97 06/01/24 10:08 Oxygen Delivery Method Room Air 06/01/24 10:08 BMI result Body Mass Index 28.0 Tobacco/Smoking Status: Tobacco use Status Tobacco use date assessed 06/01/24 06/01/24 10:14 Patient Tobacco Use Status Never used Tobacco 06/01/24 10:07 Tobacco use type Cigarette 06/01/24 10:07 e-Cigarette/Vaping Use Never Used 06/01/24 10:07 PHQ-9: PHQ-9 Score PHQ-9: Total score 0 06/01/24 10:07 Depression Screening Interpretation: Negative Thrive Assessment: Date of Thrive Assessment Date Thrive assessed 04/18/24 06/01/24 10:07 Const General: no acute distress Nutritional Appearance: overweight Orientation/consciousness: patient oriented x3 Resp Effort & Inspection: normal respiratory effort and able to speak in complete sentences Auscultation: clear to auscultation bilaterally, no crackles, no rales, no rhonchi and no wheezes Cardio Heart sounds: S1 normal heart sound present and S2 normal heart sound present Neuro General: patient oriented x3 Coding Level of Care Code Est Pt Level 4 (17162) Diagnoses Acute bronchitis, unspecified organism J20.9 Bronchitis organism: unspecified organism Time Spent (min) 20 Assessment & Plan Assessment & Plan (1) Acute bronchitis: Code(s): J20.9 - Acute bronchitis, unspecified Category: Medical Qualifiers: Bronchitis organism: unspecified organism Qualified Code(s): J20.9 - Acute bronchitis, unspecified Plan: Resolved at this time.
[2024-06-01 10:08] VITALS: BP 122/66; PULSE 93; TEMP 36.6; O2SAT 97; BMI 28.0
== END 2024-06-01 10:41 | disposition home or self-care (01) ==
LOC: HO.HMCH 09:55
PROVIDERS: PCP Internal Medicine; Visit Provider Nurse Practitioner Family
DX: J20.9 Acute bronchitis, unspecified (principal)

== ENCOUNTER → 2024-07-26 15:54 | Outpatient (BNVA) | payer OTHER, SELFPAY | PROVIDERS: PCP Internal Medicine; Visit Provider Internal Medicine | DX: Z13.89 Encounter for screening for other disorder (principal) ==

== ENCOUNTER → 2024-07-26 15:54 | Outpatient (AMB) | payer OTHER, SELFPAY ==
--- NOTE | 2024-07-26 15:55 | A.OFFPC_ITS ---
Intake Visit Reasons: ? Sinus Infection [employer] Required: No Allergies acetaminophen [From Midrin] Allergy (Mild, Verified 07/26/24 15:56) unknown dichloralphenazone [From Midrin] Allergy (Mild, Verified 07/26/24 15:56) unknown isometheptene [From Midrin] Allergy (Mild, Verified 07/26/24 15:56) unknown ceftriaxone [From Rocephin] Allergy (Unknown, Verified 07/26/24 15:56) Unknown ciprofloxacin [Cipro] Allergy (Unknown, Verified 07/26/24 15:56) Unknown metronidazole [Flagyl] Allergy (Unknown, Verified 07/26/24 15:56) Unknown Sulfa (Sulfonamide Antibiotics) Allergy (Unknown, Verified 07/26/24 15:56) Unknown timolol Allergy (Intermediate, Uncoded 06/01/24 10:08) vision changes Tobacco use date assessed: 06/01/24 Dental Screening Dental Screen Date: 04/18/24 HPI ? 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 platelets Surgical History H/O pelvic surgery History of endometrial ablation H/O bilateral breast reduction surgery History of cholecystectomy History of tubal ligation Family History Father Basal cell carcinoma COPD (chronic obstructive pulmonary disease) Mother Dementia Paternal Grandmother Stroke Social History Housing: House Alcohol intake: never Patient Tobacco Use Status: Never used Tobacco Tobacco use type: Cigarette e-Cigarette/Vaping Use: Never Used Second Hand Smoke Exposure: No service: No Current occupational status: employed Current occupational exposures/hazards: No Cognitive needs: No Hearing needs: No Vision needs: Yes Questionnaire Thrive Questionnaire Date Thrive assessed: 04/18/24 TAWANNA-7 AMB Questionnaire TAWANNA-7 Date TAWANNA - 7 assessed: 04/18/24 Source: Developed by Drs. Esteban Rivers, Ellen Valenzuela, Duncan Porras and colleagues, with an educational chela from [employer]. Physical exam (Primary Care) Tobacco/Smoking Status: Tobacco use Status Tobacco use date assessed 06/01/24 07/26/24 15:57 Patient Tobacco Use Status Never used Tobacco 07/26/24 15:57 Tobacco use type Cigarette 07/26/24 15:57 e-Cigarette/Vaping Use Never Used 07/26/24 15:57 Thrive Assessment: Date of Thrive Assessment Date Thrive assessed 04/18/24 07/26/24 15:57 Telehealth Telehealth Telehealth Platform: Telephone Location of provider rendering services: practice address Location of patient: address on file Patient Identification confirmed using: Name, : Yes Telehealth method: video Patient verbally consented to treatment: Yes Patient verbally consented to billing insurance company: Yes Patient informed of any privacy concerns related to visit: Yes Minutes spent on Phone/Video with Pt.: 25 Coding Level of Care Code Tele Est Pt Level 4 (45543) Diagnoses Allergic rhinitis J30.9 Laryngitis J04.0 Sinus congestion R09.81 Generalized anxiety disorder F41.1 Assessment & Plan Assessment & Plan (1) Allergic rhinitis: Code(s): J30.9 - Allergic rhinitis, unspecified Category: Medical Plan: Continue with allergy medication with montelukast with nasal sprays. (2) Laryngitis: Code(s): J04.0 - Acute laryngitis Category: Medical Plan: Did discussed that most of this problems are viral infection (3) Sinus congestion: Code(s): R09.81 - Nasal congestion Category: Medical Plan: Discussed about using saline nasal rinses which are very effective. Advised continue on with allergy medication (4) Generalized anxiety disorder: Code(s): F41.1 - Generalized anxiety disorder Category: Medical Plan: Will follow-up on the counseling referral done Plan History of Present Illness The patient is a 58-year-old female presenting with sinus problems characterized by severe nasal discharge and a persistent cough. The symptoms began approximately four or five days ago, worsening over time due to underlying allergies. Despite using jjdh-tmg-couctdd medications like Tylenol and ibuprofen, the symptoms have persisted. The patient reports previous episodes leading to ER visits, where she received treatments including inhalers and prednisone. The family history includes COPD, which exacerbates her concerns. Allergy tests have indicated a mold allergy, though she has no direct exposure to house plants or mold sources. Review of Systems - Respiratory: Reports persistent coughing, wheezing but denies shortness of breath - HEENT: Reports sinus pressure, greenish to brown nasal discharge; denies current sore throat - Allergic/Immunologic: Reports history of allergies and known mold allergy - Skin: Reports no rash or swelling Plan The patient's sinus symptoms are treated with both an oral steroid, prednisone, and an antibiotic to potentially address bacterial infection concerns. The prednisone should be taken with food to avoid gastrointestinal side effects. Prophylactic actions such as sinus rinses were discussed to mitigate symptoms without medication, given her mold allergy and chronic sinusitis. Current allergy medications, including Zyrtec, should be continued alongside an upcoming other sales support worker consultation to re-evaluate treatment strategies. The patient is further monitored for symptoms related to anxiety, with previous counseling referrals being reinvestigated to implement appropriate support interventions. Patient was informed and verbally consented to the use of an ambient scribe for clinic note documentation during this visit. Discussion Notes I discussed the management of the patient's current sinusitis exacerbation due to her underlying allergies and potential secondary infection. We reviewed the rationale for prescribing prednisolone and antibiotics, discussing the benefits of reducing inflammation and addressing possible infection, while reminding her to take prednisone with food to minimize side effects. I addressed her concerns about prednisone impacting blood sugar levels and bone density, given her father?s COPD history. I suggested sinus rinses as a non-drug approach, potentially avoiding medications. The patient was advised to continue her allergy management with Zyrtec and to prepare for her other sales support worker?s appointment in order to optimize her therapy. The counseling referral was also a topic of our talk, ensuring she had support for her anxiety. Patient Instructions - Begin the prescribed course of prednisone with food - Take prescribed antibiotics as directed - Continue current allergy medications (Zyrtec, Fluticasone) - Try sinus rinses to help alleviate symptoms - Follow up with your other sales support worker as planned - Seek medical attention if symptoms worsen, despite current interventions - Follow up on counseling referral for anxiety management Medications: New prednisone 4 tabs QD x 2 days then 3 tabs QD x 2 days then 2 tabs Qd x 2 days then 1 tab QD x 2 days PO daily; 20 tabs 0RF J45.909 - Unspecified asthma, uncomplicated, R09.81 - Nasal congestion azithromycin (Zithromax) For 250 mg dose pack: take 500 mg today (day 1), then 250 mg for 4 days (days 2-5) PO 6 tabs 0RF R09.81 - Nasal congestion cetirizine 10 mg PO DAILY PRN 30 tabs 2RF allergy symptoms R09.81 - Nasal congestion
--- OUTSIDE RECORDS SUMMARY | 2024-07-26 15:56 | XMS_ITS | Clinical Summary ---
Author Organization [facility] [address] [facility] Address [address] [place] [address] Phone Care Team Providers Care Agricultural Engineering Technologist Name Role Phone Alan Bedolla MD Primary Care Provider [phone] Allergies Active Allergy Reactions Criticality Noted Date Comments Ceftriaxone Anaphylaxis High 05/30/2024 Ciprofloxacin Hives 05/30/2024 Sdcbliu-Nsqvaoyhh-Uiootvxlklcp Anaphylaxis High 05/06 Metronidazole Hives 05/30/2024 Sulfa (Sulfonamide Antibiotics) GI intolerance 05/30/2024 Medications pantoprazole (PROTONIX) 40 mg EC tablet Take 1 tablet (40 mg total) by mouth 1 (one) time each day. Active pantoprazole (PROTONIX) 40 mg EC tabletIndication s:Gastroesophage al reflux disease without esophagitis Take 1 tablet (40 mg total) by mouth 2 (two) times a day. Do not crush, chew, or split. 180 each 3 05/30/2024 05/31/19 Active dicyclomine (BENTYL) 10 mg capsuleIndicatio ns:Irritable bowel syndrome (IBS) TAKE 1 CAPSULE BY MOUTH THREE TIMES A DAY NEEDED 270 capsule 2 06/06/2024 Active pantoprazole (PROTONIX) 40 mg EC tabletIndication s:Gastroesophage al reflux disease without esophagitis TAKE 1 TABLET BY MOUTH EVERY DAY 90 tablet 3 06/20/2024 Active Active Problems Problem Noted Date Diagnosed Date [...] PM EDT Office Visit Gastroenterology - [address] [phone] Jennifer Almendarez PA Gastroesophageal reflux disease without esophagitis (Primary Dx); Rectal bleeding 05/30/2024 Telephone Gastroenterology - [address] [phone] Jennifer Almendarez PA 04/30/2024 Telephone Gastroenterology - [address] [phone] Sreedhar Juarez MD from Last 3 Months [...] Years (1 of 1 - PCV) 09/02/2015 Depression Screening 09/27/2023 HIV Screening 09/27/2023 Hepatitis C Screening 09/27/2023 Social Influencers of Health Screening 09/27/2023 COVID-19 Vaccine ( season) 2023 01/25/2022, 01/24/2021, 04/19/2020, Additional history exists DTaP,Tdap,and Td Vaccines (3 - Td or Tdap) 12/31/2027 12/30/2017, 05/26/2009 Colorectal Cancer Screening: Colonoscopy 04/30/2032 04/30/2022 Hepatitis A Vaccines Aged Out 05/26/2009 No [...] age to complete this topic Meningococcal B Vaccine Aged Out No l onger eligible based on patient's age to complete [...] on patient's age to complete this topic Procedures Procedure Name Priority Date/Time Associated Diagnosis Comments EXTERNAL COLONOSCOPY REPORT Routine 04/30/2022 2:58 PM EST from Last 3 Months or Most Recently Relevant to Health Maintenance Results * External Colonoscopy Report (04/30/2022 2:58 PM EST) Anatomical Region Laterality Modality Endoscopy us Historical Provider GI~PROCEDURE ORDERABLES F inal Result from Last 3 Months or Most Recently Relevant to Health Maintenance Insurance [facility] [address] [place] [address] Care Teams Agricultural Engineering Technologist Relationship Specialty Start Date End Date Alan Bedolla MD PCP - General Internal Medicine 04/30/24
== END ==
LOC: HO.HMCH 15:54
PROVIDERS: PCP Internal Medicine; Visit Provider Internal Medicine
DX: J30.9 Allergic rhinitis, unspecified (principal); J04.0 Acute laryngitis; R09.81 Nasal congestion; F41.1 Generalized anxiety disorder

== ENCOUNTER 2024-10-16 16:40 | Outpatient (REF) | payer OTHER, SELFPAY ==
--- OUTSIDE RECORDS SUMMARY | 2024-10-16 16:42 | XMS_ITS | Clinical Summary ---
Author Organization [facility] [address] Address [address] [place] [address] Care Team Providers Care Prospect Manager Name Role Phone Pcp, No Primary Care Provider [phone] Social History Tobacco Use Types Packs/Day Years [...] 66 11/13/2020 3:00 PM EDT Temperature 36.3 C (97.4 F) 11/13/2020 3:00 PM EDT Respiratory Rate - - Oxygen Saturation 97% 11/13/2020 3:00 PM EDT Inhaled Oxygen Concentration - - Weight - - Height - - Body Mass Index - - Plan of Treatment Health Maintenance Due Date Last Done Comments Colorectal Cancer: COLONOSCO PY Screening every 10 yrs (or Modifier) 1965 Depression: Screening Annual ly using PHQ-2/9 in Adults 18 yrs or above (or HM Modifier)([facility]) 09/02/1983 Hepatitis C Virus Infection in Adolescents and Adults: Screening (or Modifier) ([facility]) 09/02/1983 [facility] Screening Reminder: Paulina enriquez for all adults ([facility]) 09/02/1983 Tobacco Smoking Cessation: i n Adults excluding Women: Behavioral and Pharmacotherapy Interventions ([facility]) 09/02/1983 DTaP/Tdap/Td Vaccines ([facility]) (1 - Tdap) 1984 Cervical Cancer Screenin 1-65 yrs of age (or Modifier) 1986 Cervical Cancer Screening: P ap every 3 yrs pts age 21-65 1986 Cervical Cancer: Pap Screeni ng with Modifier timing ([facility]) 1986 Cervical Cancer: hrHPV alone or with cotesting Pap for Pts 30-65yrs screening every 5yrs ([facility]) 1986 Colorectal Cancer Screening 45 -75 Yrs (or HM Modifier ) 2010 Colorectal Cancer: FLEXIBLE SIGMOIDOSCOPY Screening every 5 yrs 2010 Colorectal Cancer: Fecal Imm unochemical Test (FIT) Annually [facility] 2010 Colorectal Cancer: High-sens itivity gFOBT Screening Annually [facility] 2010 Colorectal Cancer: Stool Col oguard Screening every 3 yrs 2010 Colorectal Cancer:CT Colonography Screening every 5 yr s 2010 Breast Cancer: Screening Paulina ually age 50-74 yrs (or HM Modifier)([facility]) 09/02/2015 Pneumococcal Vaccination Scr eening: Patients 50+ yrs of age ([facility]) (1 of 1 - PCV) 09/02/2015 Zoster/Shingles Vaccine Seri es Screening: Adults aged 18+ yrs (or HM Modifiers)([facility]) (1 of 2) 09/02/2015 COVID-19 Vaccine Screening: Initial Series and Booster Status ([facility]) (2023- season) 2023 Flu Vaccination: Yearly for ages 18mos through 64 years (or Modifier)([facility]) 10/05/2024 Medical Devices Not on file Insurance Care Teams Prospect Manager Relationship Specialty Start Date End Date Pcp, No PCP - General Family Medicine 05/28/20
[2024-10-18 01:18] LABS: Immunoglobulin A 194 mg/dL (47-310); Immunoglobulin M 98 mg/dL (50-300)
[2024-10-18 11:19] LABS: Immunoglobulin G Subclass 1 537 mg/dL (382-929); Immunoglobulin G Subclass 2 369 mg/dL (241-700); Immunoglobulin G Subclass 3 58 mg/dL (22-178); Immunoglobulin G Subclass 4 8.9 mg/dL (4-86); Immunoglobulin G Total 1021 mg/dL (600-1640)
== END 2024-10-16 16:41 | disposition home or self-care (01) ==
LOC: HO.LAB 16:40
PROVIDERS: PCP Internal Medicine; Visit Provider Allergy & Immunology
DX: R53.83 Other fatigue (principal); Z01.84 Encounter for antibody response examination; J30.9 Allergic rhinitis, unspecified; Z86.19 Personal history of other infectious and parasitic diseases
CPT/HCPCS: 36415; 82784; 86317

== ENCOUNTER 2024-11-22 16:23 | Outpatient (AMB) | payer OTHER, SELFPAY ==
--- NOTE | 2024-11-22 16:19 | MHC.PC.OV ---
Vital Signs 11/22/24 16:20 Height 5 ft 4 in Weight 162 lb 8 oz BMI 27.9 BP 128/86 Blood Pressure Location Lt brachial Position Sitting Pulse 103 H Pulse Source Pulse Oximeter Temp 97.5 F Temp Source Temporal Artery Scan Pulse Oximetry (%) 97 Oxygen Delivery Method Room Air Intake Visit Reasons: annual exam Allergies acetaminophen (From Midrin) Allergy (Mild, Verified 11/22/24 16:19) unknown dichloralphenazone (From Midrin) Allergy (Mild, Verified 11/22/24 16:19) unknown isometheptene (From Midrin) Allergy (Mild, Verified 11/22/24 16:19) unknown ceftriaxone (From Rocephin) Allergy (Unknown, Verified 11/22/24 16:19) Unknown ciprofloxacin (Cipro) Allergy (Unknown, Verified 11/22/24 16:19) Unknown metronidazole (Flagyl) Allergy (Unknown, Verified 11/22/24 16:19) Unknown Sulfa (Sulfonamide Antibiotics) Allergy (Unknown, Verified 11/22/24 16:19) Unknown timolol Allergy (Intermediate, Uncoded 11/22/24 16:19) vision changes Medication List - Last Reconciled 11/22/24 by Alan Bedolla MD azelastine 2 sprays intranasal BID cetirizine 10 mg PO DAILY PRN dicyclomine 10 mg PO TID fluticasone propionate 50 mcg/actuation 1 spray intranasal DAILY lactobacillus combination no.8 (Adult Probiotic) 3,000 mmu cells PO DAILY methylcellulose (laxative) (Fiber Laxative (methylcellulose)) 500 mg PO DAILY multivitamin 1 tab PO DAILY nabumetone 500 mg PO BID pantoprazole 40 mg PO BID vit [id number] 352 300 mcg-45 mg- 10 mcg-5 mg (Alive Immune Elderberry) 1 tab PO .QD Tobacco use date assessed: 11/22/24 Dental Screening Dental Screen Date: 11/22/24 Did you have a dental visit in the last 12 months?: Yes Did you have a dental problem in the last 6 months where you did not have access to dental care?: No Was dental information given to patient?: Patient has dentist HPI annual exam HPI Details Seeing Dr[facility] Richi goncalves [facility] Medical History Acute bronchitis Closed arm fracture Chronic sinusitis Fecal incontinence Impaired glucose tolerance GERD (gastroesophageal reflux disease) Open-angle glaucoma Right wrist fracture Right carpal tunnel syndrome Diverticulitis Osteoarthritis Glaucoma Irritable bowel syndrome Impaired ability of von Willebrand factor (vWF) to agglutinate platelets Surgical History H/O pelvic surgery History of endometrial ablation H/O bilateral breast reduction surgery History of cholecystectomy History of tubal ligation Family History Father Basal cell carcinoma COPD (chronic obstructive pulmonary disease) Mother Dementia Paternal Grandmother Stroke Social History Housing: House Alcohol intake: never Patient Tobacco Use Status: Never used Tobacco Tobacco use type: Cigarette e-Cigarette/Vaping Use: Never Used Second Hand Smoke Exposure: No service: No Current occupational status: employed Current occupational exposures/hazards: No Cognitive needs: No Hearing needs: No Vision needs: Yes Questionnaire PHQ-9 Over the last 2 weeks, how often have you been bothered by any of the following problems? 1. Little interest or pleasure in doing things: not at all 2. Feeling down, depressed, or hopeless: not at all 3. Trouble falling or staying asleep, or sleeping too much: not at all 4. Feeling tired or having little energy: not at all 5. Poor appetite or overeating: not at all 6. Feeling bad about yourself - or that you are a failure or have let yourself or your family down: not at all 7. Trouble concentrating on things, such as reading the newspaper or watching television: not at all 8. Moving or speaking so slowly that other people could have noticed. Or the opposite - being so fidgety or restless that you have been moving around a lot more than usual: not at all 9. Thoughts that you would be better off or of hurting yourself in some way: not at all Total score: 0 Depression Screening Interpretation: Negative Depression Screening Done: Yes Source: Developed by Drs. Esteban Rivers, Ellen Valenzuela, Duncan Porras and colleagues, with an educational chela from [employer]. Thrive Questionnaire Date Thrive assessed: 11/22/24 I am a: Patient What is your living situation today?: I have a steady place to live Within the past 12 months, did the food you bought not last and you didn't have the money to get more?: Never true Within the past 12 months, did you worry whether your food would run out before you got money to buy more?: Never true Do you have trouble paying for medicines?: No Do you have trouble getting transportation to medical appointments?: No Do you have trouble paying your heating and electricity bill?: No Do you have trouble taking care of your child, family member or friend?: No Do you have trouble with day-to-day activities such as bathing, preparing meals, shopping, managing finances, etc.?: No Are you currently unemployed and looking for a job?: No Are you interested in more education?: No Please select the resources that you would like help with: None Currently or been in a relationship where the following occur: No concerns reported THRIVE Score: 0 AUDIT C Alcohol Use Questionnaire (AUDIT-C) 1. How often do you have a drink containing alcohol?: Never 3. How often do you have six or more drinks on one occasion?: Never Total Score: 0 TAWANNA-7 AMB Questionnaire TAWANNA-7 Date TAWANNA - 7 assessed: 04/18/24 Feeling nervous, anxious, or on edge: 0 = Not at all Not being able to stop or control worryin = More than half the days Worrying too much about different things: 1 = Several days Trouble relaxin = Several days Being so restless that it is hard to sit still: 1 = Several days Becoming easily annoyed or irritable: 0 = Not at all Feeling afraid as if something awful might happen: 0 = Not at all Total TAWANNA-7 score (0-4 normal; 5-9 mild; 10-14 moderate; 15-21 severe): 5 Source: Developed by Drs. Esteban Rivers, Ellen Valenzuela, Duncan Porras and colleagues, with an educational chela from [employer]. Review of Systems Const Denies poor appetite and Denies weakness Eyes Denies no additional complaints ENT Reports Normal hearing present, Denies dizziness, Denies nasal congestion, Denies tinnitus and Denies sore throat Card Denies chest pain, Denies syncope, Denies rapid heart rate and Denies dyspnea Resp Denies cough and Denies dyspnea GI Denies change in stool character, Reports constipation, Denies diarrhea, Denies nausea and Denies vomiting Denies urinary frequency, Denies difficulty voiding and Denies dysuria Neuro Reports Normal hearing present, Denies confusion, Denies dizziness, Denies syncope and Denies weakness Psych Denies confusion Physical exam (Primary Care) Vital Signs: Last Vital Signs Temp 97.5 F 11/22/24 16:20 Pulse 103 H 11/22/24 16:20 BP 128/86 11/22/24 16:20 Pulse Ox 97 11/22/24 16:20 Oxygen Delivery Method Room Air 11/22/24 16:20 BMI result Body Mass Index 27.9 Tobacco/Smoking Status: Tobacco use Status Tobacco use date assessed 11/22/24 11/22/24 16:21 Patient Tobacco Use Status Never used Tobacco 11/22/24 16:21 Tobacco use type Cigarette 11/22/24 16:21 e-Cigarette/Vaping Use Never Used 11/22/24 16:21 PHQ-9: PHQ-9 Score PHQ-9: Total score 0 11/22/24 16:28 Depression Screening Interpretation: Negative Thrive Assessment: Date of Thrive Assessment Date Thrive assessed 11/22/24 11/22/24 16:21 Currently or been in a relationship where the following occur: No concerns reported Const General: alert and awake; No confusion Orientation/consciousness: No confusion HENMT Head: Yes normocephalic Ears: external ears normal and TM's normal bilaterally Face and sinus: Yes normal facial exam Mouth: moist mucous membranes Throat: Yes tonsils normal Eyes Conjunctivae: conjunctivae normal Pupils: Equal, round and reactive pupils present and Pupil accommodation reflex normal Direct Ophthalmoscopy: normal light reflex Neck Neck: No lymphadenopathy Thyroid: Thyroid normal Chest Chest palpation & inspection: normal inspection of the chest Resp Effort & Inspection: normal respiratory effort and no audible wheezes Auscultation: clear to auscultation bilaterally, no crackles, no wheezes and lung sounds not diminished Cardio Rate: regular rate Rhythm: regular rhythm Peripheral pulses: radial pulses present and dorsalis pedis present GI Palpation (GI): no masses Auscultation: normal bowel sounds and normoactive bowel sounds Rectal Exam - Female: deferred Skin General skin exam: no rashes or lesions noted Rashes: no rashes Neuro General: deep tendon reflexes 2+ bilaterally and No confusion Cranial nerves: Yes Equal, round and reactive pupils present, Yes Midline tongue present, Yes Normal hearing present and Yes Ability to bilaterally elevate shoulders present Cognition (Neuro): normal cognition Gait exam (Neuro): Normal gait present Motor exam (neuro): 5/5 motor strength present throughout Deep tendon reflexes (DTR's): Right brachioradialis reflex intensity grade: 2+, Left brachioradialis reflex intensity grade: 2+, Right patellar reflex intensity grade: 2+ and Left patellar reflex intensity grade: 2+ Extrem General: No edema Coding Level of Care Code Est Pt Prev Care 40-64y(30201) Diagnoses Annual physical exam Z00.00 Impaired glucose tolerance R73.02 Overweight (BMI 25.0-29.9) E66.3 Gastroesophageal reflux disease without esophagitis K21.9 Esophagitis presence: without esophagitis Osteoarthritis of finger M19.049 Assessment & Plan Assessment & Plan (1) Annual physical exam: Code(s): Z00.00 - Encounter for general adult medical examination without abnormal findings Category: Medical Plan: Patient is advised to eat healthy, keep well hydrated, keep active and have adequate sleep. (2) Impaired glucose tolerance: Code(s): R73.02 - Impaired glucose tolerance (oral) Category: Medical Plan: Decrease the amount of carbohydrate intake, pasta, bread, rice and potatoes are all sugar and that is aside from all the sweet stuff, remember that fruits are good but they are Sweet also. April 2024 last blood work (3) Overweight (BMI 25.0-29.9): Code(s): E66.3 - Overweight Category: Medical Plan: Diet and exercise (4) GERD (gastroesophageal reflux disease): Code(s): K21.9 - Gastro-esophageal reflux disease without esophagitis Category: Medical Qualifiers: Esophagitis presence: without esophagitis Qualified Code(s): K21.9 - Gastro-esophageal reflux disease without esophagitis Plan: Avoid the foods that causes that usually spicy foods, tomato products, juices, coffee, soda and foods that your sensitive to. After eating do not lie down, allow 3-4 hours before in lie down. And keep the head of bed above 30 degrees to avoid the acid from going up. (5) Osteoarthritis of finger: Code(s): M19.049 - Primary osteoarthritis, unspecified hand Category: Medical Plan: Patient has seen arthritis treatment center, Voltaren gel prescribed Plan History of Present Illness The patient is a 59-year-old female presenting for a wellness visit and management of chronic conditions. The patient has a history of von Willebrand disease, which affects her blood clotting ability. She also has irritable bowel syndrome and gastroesophageal reflux disease, which are managed with dicyclomine and pantoprazole, respectively. The patient has impaired glucose tolerance, with a hemoglobin A1c of 5.9, indicating a need for monitoring and lifestyle modifications. Her cholesterol levels have improved, with LDL reduced to 112 mg/dL, though triglycerides remain slightly elevated at 159 mg/dL. She has a history of depression with generalized anxiety disorder, managed with lifestyle modifications and support. The patient has cervical degenerative disc disease and osteoarthritis of the hands, which are managed with Voltaren gel and nabumetone for pain relief. She also experiences bilateral shoulder tendinitis, which is monitored for any progression. The patient has glaucoma, with intraocular pressure well-controlled at 17/18 mmHg without the use of timolol due to an allergic reaction. Preventative care includes a pneumococcal vaccination, which showed significant improvement in immune response. Health Maintenance - Pneumococcal vaccination administered with improved immune response - Regular monitoring of blood glucose and cholesterol levels - Lifestyle modifications for depression and anxiety management - Regular eye examinations for glaucoma management Social History - The patient does not consume alcohol or use tobacco products. - Engages in regular physical activity and follows a balanced diet with occasional indulgences. - Lives with her and manages household responsibilities. Review of Systems - General: Denies fever, weight loss, or fatigue. - Cardiovascular: Denies chest pain, palpitations, or syncope. - Respiratory: Denies dyspnea, cough, or wheezing. - Gastrointestinal: Reports improved bowel movements; denies nausea or vomiting. - Neurological: Denies dizziness or headaches. - Musculoskeletal: Reports joint pain in hands and shoulders. - Psychiatric: Reports managing anxiety and depression with lifestyle modifications. Physical Exam General: Cooperative, healthy appearing, comfortable, no acute distress and well developed Orientation: Patient oriented x3 Limitations: No limitations Head: Normal to inspection Ears: Hearing grossly normal bilaterally Nose: Normal external nose present Face and sinus: Normal facial exam Eyes: Appearance normal, both eyes and all related structures Neck: Normal visual inspection and Yes full ROM Respiratory: Normal respiratory effort and able to speak in complete sentences. Clear to auscultation bilaterally Cardiovascular: Regular rate and rhythm. Normal S1 and S2 GI: Normal to inspection. Soft to palpation and nontender Skin: No rashes or lesions noted Neuro: Patient oriented x3 Extremities: Normal to inspection Results - Labs: Hemoglobin A1c 5.9, LDL 112 mg/dL, triglycerides 159 mg/dL, B12, vitamin D, folic acid, thyroid within normal limits Plan Patient was informed and verbally consented to the use of an ambient scribe for clinic note documentation during this visit. 1. Von Willebrand Disease The patient will continue to be monitored for any bleeding complications associated with von Willebrand disease. 2. Irritable Bowel Syndrome Management includes the use of dicyclomine for symptom control and dietary modifications as needed. 3. Gastroesophageal Reflux Disease The patient is advised to continue pantoprazole for management of gastroesophageal reflux disease. 4. Impaired Glucose Tolerance Regular monitoring of blood glucose levels and lifestyle modifications are recommended to prevent progression to diabetes. 5. Depression With Generalized Anxiety Disorder The patient is encouraged to continue lifestyle modifications and seek support as needed for managing depression and anxiety. 6. Cervical Degenerative Disc Disease Pain management includes the use of Voltaren gel and nabumetone, with monitoring for any progression of symptoms. 7. Osteoarthritis Of The Hands The patient is advised to use Voltaren gel for pain relief and monitor for any changes in symptoms. 8. Bilateral Shoulder Tendinitis The patient is advised to monitor symptoms and report any worsening of shoulder pain. 9. Glaucoma Regular eye examinations are recommended to monitor intraocular pressure and manage glaucoma effectively. Discussion Notes During the visit, we discussed the management of the patient's chronic conditions, including the continuation of current medications and lifestyle modifications. We emphasized the importance of regular monitoring of blood glucose and cholesterol levels to prevent complications. The patient was advised to continue using Voltaren gel and nabumetone for pain management and to report any changes in symptoms. We also discussed the significance of regular eye examinations for glaucoma management. The patient was encouraged to maintain a healthy lifestyle and to seek support for managing depression and anxiety. Patient Instructions - Continue current medications as prescribed. - Monitor blood glucose and cholesterol levels regularly. - Use Voltaren gel and nabumetone for pain management. - Schedule regular eye examinations for glaucoma. - Maintain a healthy lifestyle with balanced diet and regular exercise. - Seek support for managing depression and anxiety as needed. Orders: Orders Lipid Panel Today E78.00 - Pure hypercholesterolemia, unspecified, R73.02 - Impaired glucose tolerance (oral) Comprehensive Met. Panel Today R73.02 - Impaired glucose tolerance (oral) Hemoglobin A1c Today R73.02 - Impaired glucose tolerance (oral)
[2024-11-22 16:20] VITALS: BP 128/86; PULSE 103; TEMP 36.4; O2SAT 97; BMI 27.9
--- OUTSIDE RECORDS SUMMARY | 2024-11-22 17:21 | XMS_ITS | Clinical Summary ---
Author Organization [facility] [address] [facility] Address [address] [place] [address] Phone Care Team Providers Care Strategic Alliances Manager Name Role Phone Alan Bedolla MD Primary Care Provider [phone] Allergies Active Allergy Reactions Criticality Noted Date Comments Ceftriaxone Anaphylaxis High 05/30/2024 Ciprofloxacin Hives 05/30/2024 Aujswzy-Jkguopses-Dscskjrunxqa Anaphylaxis High 05/06 Metronidazole Hives 05/30/2024 Sulfa [...] 05/30/2024 Overview (05/30/2024): S/p sacral nerve stimulation Surgical History Surgery Date Site/Laterality Comments CHOLECYSTECTOMY [...] Years (1 of 1 - PCV) 09/02/2015 HIV Screening 09/27/2023 Hepatitis C Screening 09/27/2023 Social Influencers of Health Screening 09/27/2023 Depression Screening 03/07/2024 COVID-19 Vaccine ( season) 2024 01/25/2022, 01/24/2021, 04/19/2020, Additional history exists Influenza Vaccine (#1) 2024 4, 12/11/2022, 12/09/2021, Additional history exists DTaP,Tdap,and Td Vaccines (3 - Td or Tdap) 12/31/2027 12/30/2017, 05/26/2009 Colorectal Cancer Screening: Colonoscopy 04/30/2032 04/30/2022 RSV Immunization Adult Patients (1 - 1-dose 75+ series) 2040 Hepatitis A Vaccines Aged Out 05/26/2009 No long er eligible based on patient's age to complete this topic Zoster Vaccines Completed 01/27/2020, 11/24/2019 HIB Vaccines Aged Out No longer eligi [...] Most Recently Relevant to Health Maintenance Insurance [facility] Care Teams Strategic Alliances Manager Relationship Specialty Start Date End Date Alan Bedolla MD PCP - General Internal Medicine 04/30/24
--- OUTSIDE RECORDS SUMMARY | 2024-11-22 17:21 | XMS_ITS | Clinical Summary ---
Author Organization [facility] Address [address] [place] [address] Care Team Providers Care Apple Thinner Name Role Phone Pcp, No Primary Care Provider [phone] Social History Tobacco Use Types Packs/Day Years [...] Adults 18 yrs or above (or HM Modifier)([facility]) 09/02/1983 Hepatitis C Virus Infection in Adolescents and Adults: Screening (or Modifier) ([facility]) 09/02/1983 [facility] Screening Reminder: Paulina enriquez for all adults ([facility]) 09/02/1983 Tobacco Smoking Cessation: i n Adults excluding Women: Behavioral and Pharmacotherapy Interventions ([facility]) 09/02/1983 DTaP/Tdap/Td Vaccines ([facility]) (1 - Tdap) 1984 Cervical Cancer Screenin 1-65 yrs of age (or Modifier) 1986 Cervical Cancer Screening: P ap every 3 yrs pts age 21-65 1986 Cervical Cancer: Pap Screeni ng with Modifier timing ([facility]) 1986 Cervical Cancer: hrHPV alone or with cotesting Pap for Pts 30-65yrs screening every 5yrs ([facility]) 1986 Colorectal Cancer Screening 45 -75 Yrs (or HM Modifier ) 2010 Colorectal Cancer: FLEXIBLE SIGMOIDOSCOPY Screening every 5 yrs 2010 Colorectal Cancer: Fecal Imm unochemical Test (FIT) Annually [facility] 2010 Colorectal Cancer: High-sens itivity gFOBT Screening Annually [facility] 2010 Colorectal Cancer: Stool Col oguard Screening every 3 yrs 2010 Colorectal Cancer:CT Colonography Screening every 5 yr s 2010 Breast Cancer: Screening Paulina ually age 50-74 yrs (or HM Modifier)([facility]) 09/02/2015 Pneumococcal Vaccination Scr eening: Patients 50+ yrs of age ([facility]) (1 of 1 - PCV) 09/02/2015 Zoster/Shingles Vaccine Seri es Screening: Adults aged 18+ yrs (or HM Modifiers)([facility]) (1 of 2) 09/02/2015 COVID-19 Vaccine Screening: Initial Series and Booster Status ([facility]) (2023- season) 2023 Flu Vaccination: Yearly for ages 18mos through 64 years (or Modifier)([facility]) 10/05/2024 Medical Devices Not on file Insurance Care Teams Apple Thinner Relationship Specialty Start Date End Date Pcp, No PCP - General Family Medicine 05/28/20
== END 2024-11-22 17:06 | disposition home or self-care (01) ==
LOC: HO.HMCH 16:23
PROVIDERS: PCP Internal Medicine; Visit Provider Internal Medicine
DX: Z00.00 Encounter for general adult medical examination without abnormal findings (principal); R73.02 Impaired glucose tolerance (oral); E66.3 Overweight; K21.9 Gastro-esophageal reflux disease without esophagitis; M19.049 Primary osteoarthritis, unspecified hand